=== PATIENT | female | born 1985 | race Caucasian/White ===

== ENCOUNTER → 2016-12-04 | Outpatient (CLI) | payer OTHER ==
--- NOTE | 2016-12-04 19:03 | DIAGNOSTIC IMAGING REPORT ---
C-SPINE ROUTINE 4 OR 5 VIEWS CLINICAL HISTORY: 30 years-old Female presenting with SORE NECK trauma neck spasms for 10 years. TECHNIQUE: Frontal, bilateral oblique, lateral, and open-mouth odontoid views of the cervical spine were obtained. COMPARISON: None. FINDINGS: The C6 vertebral body is the last fully visualized level, limiting evaluation. Allowing for this, vertebral body heights and alignment preserved. Intervertebral disc spaces maintained. No radiographic evidence of acute fracture or subluxation. No osseous neural foraminal narrowing. No significant degenerative change. The lateral masses of C1 articulate normally with C2. No prevertebral soft tissue swelling. IMPRESSION: No radiographic evidence of acute osseous injury of the cervical spine or significant abnormality. Electronically signed by: Karri Gayle M.D. 12/04/2016 7:01 PM Dictated Date/Time: 12/04/2016 6:59 PM
== END | disposition home or self-care (01) ==
LOC: C.RAD 18:26
PROVIDERS: ATTEND Nurse Practitioner
DX: Z13.220 Encounter for screening for lipoid disorders (principal); M62.838 Other muscle spasm; M54.2 Cervicalgia

== ENCOUNTER 2020-05-27 15:28 | Inpatient (IN) ==
--- OUTSIDE RECORDS SUMMARY | 2020-05-27 15:31 | External Medical Summary | Continuity of Care Document ---
:1985 Author Name Luca Wilson, Provider Address Unavailable Unavailable , Care Team Providers Name Role Phone GaryG Katie, Provider Unavailable [email or web address] Ramachandran M.D., Jono Kennedy Unavailable [email or web address] Shelli HAIR Unavailable Unavailable Unavailable Unavailable Unavailable Problems Vaginal discharge (623.5) (N89.8) Asthma (493.90) (J45.909) Allergies and Adverse Reactions Sulfa Drugs (Allergy) Medications metroNIDAZOLE 0.75 % Vaginal Gel; Insert 1 full applicator vaginally at bedtime for 5 days Katie Ramachandran Start: 25-Feb-2017 Quantity: 1 70 GM Tube Refills: 0 Penicillin V Potassium 500 MG Oral Tablet Refills: 0 Procedures History of wisdom tooth extraction Statu s: Completed Immunizations Immunizations not documented Family History Grandmother Family history of type 2 diabetes mellitus (V18.0) (Z83.3) S tatus: Active Father Family history of hyperlipidemia (V18.19) (Z83.438) Status: Active aunt Family history of malignant neoplasm of breast (V16.3) (Z80. 3) Status: Active Grandfather Family history of malignant neoplasm of prostate (V16. 42) (Z80.42) Status: Active Family history of colon cancer (V16.0) (Z80.0) Status: Activ e Mother Family history of uterine leiomyoma (V18.7) (Z84.89) Status: Active Grandmother Family history of Twins (V27.9) (Z38.5) Status: Active Social History - Smoking Status Never smoked tobacco Plan of Treatment Planned Observations Planned Goals not documented Results No Known Results Results not documented
--- OUTSIDE RECORDS SUMMARY | 2020-05-27 15:31 | External Medical Summary | Continuity of Care Document ---
:1985 Author Name Luca Wilson, Provider Address Unavailable Unavailable , Care Team Providers Name Role Phone GaryG Katie, Provider Unavailable [email or web address] karen Ramachandran M.D., Jono Kenndey Unavailable [email or web address] Shelli HAIR Unavailable Unavailable Unavailable Unavailable Unavailable Problems Asthma (493.90) (J45.909) Vaginal discharge (623.5) (N89.8) Allergies and Adverse Reactions Sulfa Drugs (Allergy) Medications Penicillin V Potassium 500 MG Oral Tablet Refills: 0 metroNIDAZOLE 0.75 % Vaginal Gel; Insert 1 full applicator vaginally at bedtime for 5 days Katie Ramachandran Start: 25-Feb-2017 Quantity: 1 70 GM Tube Refills: 0 Procedures History of wisdom tooth [...]
[2020-05-27] MEDS ORDERED: ONDANSETRON INJ 2 MG/ML 2 ML VIAL IV STA (15:45)
[2020-05-27] MEDS ORDERED: HYDROmorphone INJ 1 MG/ML SYRINGE IV PRN (15:45)
[2020-05-27] MEDS ORDERED: SODIUM CHLORIDE 0.9% 1000ML 1,000 ML IV ONE (15:45)
[2020-05-27 16:04] LABS: Basophils # (auto) 0.02 K/uL (0-0.2); Basophils % (auto) 0.2 %; Eosinophils # (auto) 0.26 K/uL (0-0.5); Hematocrit (blood only) 42.8 % (37-47); Hemoglobin 13.1 g/dL (12.0-16.0); Immature Granulocytes # (auto) 0.03 K/uL (0.00-0.02); Immature Granulocytes % (auto) 0.2 %; Lymphocytes # (auto) 2.91 K/uL (1.2-3.4); Mean Corpuscular Hemoglobin 24.7 pg (25-34); Mean Corpuscular Hgb Conc 30.6 g/dL (32-36); Mean Corpuscular Volume 80.6 fL (80-100); Mean Platelet Volume 10.1 fL (7.4-10.4); Monocytes # (auto) 0.71 K/uL (0.11-0.59); Monocytes % (auto) 5.4 %; Neutrophils # (auto) 9.27 K/uL (1.4-6.5); Neutrophils % (auto) 70.2 %; Platelet Count 383 K/uL (130-400); RDW Coefficient of Variation 17.6 % (11.5-14.5); RDW Standard Deviation 51.7 fL (36.4-46.3); Red Blood Count 5.31 M/uL (4.2-5.4)
[2020-05-27 16:23] LABS: iSTAT Creatinine 0.4 mg/dl (0.6-1.3); iSTAT Hemoglobin 13.6 g/dl (12.0-16.0); iSTAT Ionized Calcium 1.15 mmol/l (1.12-1.32); iSTAT Potassium 3.9 mmol/L (3.3-5.0)
[2020-05-27 16:25] LABS: Albumin Level 3.4 gm/dl (3.4-5.0); BUN Creatinine Ratio 25.2 (10-20); Calcium 8.4 mg/dl (8.5-10.1); Creatinine Clr Calc Pharmacy 153.8 ml/min; Est GFR (African American) 138.2; Est GFR (Non-African American) 119.3; Potassium 3.8 mmol/L (3.5-5.1)
[2020-05-27 16:27] LABS: Albumin Globulin Ratio 0.7 (0.9-2); Bilirubin,Total 0.4 mg/dl (0.2-1); Globulin 4.8 gm/dl (2.5-4.0); Total Protein 8.2 gm/dl (6.4-8.2)
[2020-05-27] MEDS ORDERED: IOVERSOL 100ml IV ONE (16:45)
--- NOTE | 2020-05-27 17:28 | CT Scan Report ---
CT OF THE ABDOMEN AND PELVIS WITH CONTRAST CLINICAL HISTORY: Abdominal pain. COMPARISON STUDY: None. TECHNIQUE: Following IV administration of 93 mL of Optiray-320, axial images of the abdomen and pelvi s were obtained from the lung bases to the proximal femurs. Images were reviewed in the axial, sagitt al, and coronal planes. IV contrast was administered without complication. Automated exposure contro l was utilized for the study. A dose lowering technique was utilized adhering to the principles of A EVA. CT DOSE: 1015.26 mGycm FINDINGS: Lung bases are unremarkable. No pneumatosis, free air or portal venous gas is present. Post operative findings within the stomach are noted suggestive of Meghann-en-Y gastric bypass. Liver, spleen , adrenal glands, kidneys and pancreas are unremarkable. There is mild gallbladder distention without adjacent infiltration. There is no biliary or pancreatic ductal dilatation. There is no hydronephros is. Nephrograms are symmetric. There is no evidence for acute appendicitis. Note is made of a lower a bdominal ventral hernia which contains multiple small bowel loops. A small amount of ascites within t he hernia sac is noted. A loop of small bowel within the hernia sac is mildly dilated, measuring 3.9 cm in caliber. A few additional small bowel loops are also mildly dilated and fluid-filled. Major vas culature is patent. There are no suspicious osseous lesions or acute fractures within visualized skel etal structures. A partial small bowel obstruction cannot be excluded. Subcutaneous infiltration of t he abdominal wall is noted. There is no fluid collection. IMPRESSION: 1. Lower abdominal ventral hernia which contains multiple small bowel loops and trace ascites. Mildly dilated loop of small bowel within the hernia sac. A few additional mildly dilated small bowel loops . A partial small bowel obstruction related to the ventral hernia cannot be excluded. 2. Mild gallbladder distention without adjacent infiltration. 3. No evidence for acute appendicitis. 4. Status post gastric bypass. ACT 112: Negative or not required by law. Electronically signed by: Dhruv Sommers M.D. 05/27/2020 5:27 PM
--- NOTE | 2020-05-27 17:57 | Emergency Department Note ---
History of Present Illness General Chief complaint: Abdominal Pain Stated complaint: severe pain with hernia Time Seen by Provider: 05/27/20 15:37 Source: patient, RN notes reviewed and old records reviewed Mode of arrival: ambulatory Limitations: no limitations History of Present Illness Provider complaint: umbilical hernia Onset (ago): day(s) 3 Location: abdomen Severity: severe Pain Consistency: + constant Maximum Pain Intensity: 9 Current Pain Intensity: 9 Quality: + aching Relieved By: + immobilization and + rest Exacerbated By: + movement Associated symptoms: + nausea/vomiting; no chest pain, no diaphoresis, no fever/chills, no headaches, no loss of appetite and no weakness Treatments prior to arrival: none This is a 34-year-old female who had a gastric bypass performed in [place] in November. At that time she also had a umbilical hernia repaired. The patient reports that the hernia popped out approximately 1 month ago. She began experiencing pain at the area approximately 1 week ago and vomited on . She went to [facility] emergency department and presents here today over concerns about the pain. She denies any fevers or chills Home Medications Medication Instructions Recorded Confirmed Type calcium citrate 0 mg PO DAILY 05/27/20 05/27/20 History cholecalciferol (vitamin D3) 0 mcg PO DAILY 05/27/20 05/27/20 History [Vitamin D3] multivitamin 1 tab PO QAM 05/27/20 05/27/20 History vitamin A 0 unit PO DAILY 05/27/20 05/27/20 History vitamin K2 0 mcg PO DAILY 05/27/20 05/27/20 History Allergies Allergy/AdvReac Type Severity Reaction Status Date / Time acetaminophen [From Percocet] AdvReac Intermediate Agitation Unverified 05/27/20 17:31 ibuprofen AdvReac Intermediate Not to Unverified 05/27/20 17:31 Take Due to Weight Loss Surgery oxycodone [From Percocet] AdvReac Intermediate Agitation Unverified 05/27/20 17:31 Sulfa (Sulfonamide AdvReac Intermediate Shortness Unverified 05/27/20 17:31 Antibiotics) of Breath Past Med/Surg History Surgical History (Updated 05/27/20 @ 18:04 by Hong Ramirez MD) H/O gastric bypass S/P hernia repair Social History Smoking Status: Never smoker Feels Safe at Home: Yes Review of Systems A total of 10 systems reviewed and were otherwise negative Physical Exam Vital Signs Vital Signs - 24 hr 05/27/20 15:29 05/27/20 16:00 05/27/20 16:04 Temperature 36.6 C Temperature Source Temporal Artery Scan Pulse Rate 58 L 52 L 55 L Respiratory Rate 20 22 24 Respiratory Effort / Characteristics Non-Labored Respiratory Depth Normal Blood Pressure 124/67 137/67 Blood Pressure Mean 86 84 Pulse Oximetry 97 Oxygen Delivery Method Room Air Sepsis Recent Fever Within 48 Hours No Sepsis New/Unexplained Change in Mental Status N/A Sepsis Action Taken by Nursing No Action Required 05/27/20 16:05 05/27/20 16:30 05/27/20 16:31 Temperature Temperature Source Pulse Rate 51 L 54 L Respiratory Rate 20 22 Respiratory Effort / Characteristics Respiratory Depth Blood Pressure 98/42 L Blood Pressure Mean 51 Pulse Oximetry 98 Oxygen Delivery Method Room Air Sepsis Recent Fever Within 48 Hours Sepsis New/Unexplained Change in Mental Status Sepsis Action Taken by Nursing 05/27/20 16:32 05/27/20 17:00 05/27/20 17:01 Temperature Temperature Source Pulse Rate 78 51 L 47 L Respiratory Rate 25 H 22 20 Respiratory Effort / Characteristics Respiratory Depth Blood Pressure 126/66 Blood Pressure Mean 93 Pulse Oximetry Oxygen Delivery Method Sepsis Recent Fever Within 48 Hours Sepsis New/Unexplained Change in Mental Status Sepsis Action Taken by Nursing 05/27/20 17:30 05/27/20 17:31 05/27/20 18:00 Temperature Temperature Source Pulse Rate 48 L 48 L 62 Respiratory Rate 13 16 20 Respiratory Effort / Characteristics Respiratory Depth Blood Pressure 116/65 134/76 Blood Pressure Mean 83 90 Pulse Oximetry Oxygen Delivery Method Sepsis Recent Fever Within 48 Hours Sepsis New/Unexplained Change in Mental Status Sepsis Action Taken by Nursing 05/27/20 18:41 05/27/20 18:42 05/27/20 18:43 Temperature Temperature Source Pulse Rate 54 L 53 L 55 L Respiratory Rate 16 20 22 Respiratory Effort / Characteristics Respiratory Depth Blood Pressure 126/52 L Blood Pressure Mean 72 Pulse Oximetry Oxygen Delivery Method Sepsis Recent Fever Within 48 Hours Sepsis New/Unexplained Change in Mental Status Sepsis Action Taken by Nursing VITAL SIGNS - Vital signs and nursing notes were reviewed. GENERAL - 34-year-old female appearing stated age who is in no acute distress. Communicates well with provider and answers questions appropriately. SKIN - Without rashes. HEAD - NC/AT. EYES - PERRL with EOMI bilaterally. Sclera anicteric. Palpebral conjunctiva pink and moist with no injection noted. EARS - No deformities of external structures noted on gross examination bilaterally. No pain elicited with palpation of the tragus bilaterally. External auditory canals without discharge or otorrhea. Tympanic membranes pearly rios without retraction or bulging. No fluid or purulent material visualized behind the TM. Handle of malleus, umbo, cone of light, pars tensa/flaccid all easily visualized. NOSE - Midline and without cyanosis. No epistaxis or purulent drainage noted. Septum midline without deviation or septal hematoma noted. MOUTH/OROPHARYNX - Without perioral cyanosis. Buccal mucosa pink and moist and without leukoplakia. Tongue midline with equal elevation of palate bilaterally. No tonsillar hypertrophy, erythema, or exudates noted. dentition noted. NECK - Neck with FROM. Supple to palpation. lymphadenopathy noted. No nuchal rigidity. LUNGS - Chest wall symmetric without accessory muscle use, intercostals retractions, or central cyanosis. Normal vesicular breath sounds CTA B/L. No wheezes, rales, or rhonchi appreciated. CARDIAC - RRR with S1/S2. No murmur, rubs, or gallops appreciated. ABDOMEN - Umbilical hernia purple in appearance, hernia appears to reduce but immediately comes back out EXTREMITIES - No clubbing or peripheral cyanosis. No pretibial edema present. +3/5 radial, posterior tibial, and dorsalis pedis pulses palpated throughout. +5/5 strength noted in UE/LE bilaterally. NEUROLOGIC - Cranial nerves II through XII grossly intact. Sensory intact to light touch throughout. Patellar reflexes +2/4. PSYCH - A&Ox3 and cooperates fully with examiner. Pt is very pleasant and interacts well with examiner. Course Administered Medications Hydromorphone HCl (Hydromorphone Inj 1 Mg/Ml Syringe) 1 mg IV Q15M PRN PRN Reason: Pain Stop: 06/10/20 15:44 Last Admin: 05/27/20 15:55 Dose: 1 mg Documented by: [id number] Discontinued Medications Sodium Chloride (Nss 1000ml) 1,000 mls @ 999 mls/hr IV .Q1H1M ONE Stop: 05/27/20 16:45 Last Infusion: 05/27/20 17:32 Dose: 0 mls/hr Documented by: [id number] Admin: 05/27/20 15:54 Dose: 999 mls/hr Documented by: [id number] Ioversol (Ioversol 100ml) 93 ml IV ONCE ONE Stop: 05/27/20 16:46 Last Admin: 05/27/20 16:45 Dose: 93 ml Documented by: [id number] Ondansetron HCl (Ondansetron Inj 2 Mg/Ml 2 Ml Vial) 4 mg IV NOW STA Stop: 05/27/20 15:46 Last Admin: 05/27/20 15:55 Dose: 4 mg Documented by: [id number] Medical Decision Making Differential Diagnosis Appendicitis, ovarian cyst, ovarian torsion, ectopic , TOA, PID, infections, diverticulitis, UTI, obstruction, mesenteric ischemia, aortic pathology, inflammatory bowel disease, renal colic, PUD, pancreatitis, biliary pathology, hernia, volvulus, constipation, as well as other pathologies. Medical Records Attestation: I reviewed the patient's medical records. Home Medications Current Medication List: was personally reviewed by me Laboratory Data Attestation: I reviewed the patient's lab results. Result diagrams: 05/27/20 15:45 05/27/20 15:45 Lab Results 05/27/20 05/27/20 05/27/20 Range/Units 15:45 15:45 16:03 WBC 13.20 H (4.8-10.8) K/uL RBC 5.31 (4.2-5.4) M/uL Hgb 13.1 (12.0-16.0) g/dL POC Hgb 13.6 (12.0-16.0) g/dl Hct 42.8 (37-47) % POC Hct 40 (37-47) % MCV 80.6 (80-100) fL MCH 24.7 L (25-34) pg MCHC 30.6 L (32-36) g/dL RDW Std Deviation 51.7 H (36.4-46.3) fL RDW Coeff of Maura 17.6 H (11.5-14.5) % Plt Count 383 (130-400) K/uL MPV 10.1 (7.4-10.4) fL Immature Gran % (Auto) 0.2 % Neut % (Auto) 70.2 % Lymph % (Auto) 22.0 % [place] % (Auto) 5.4 % Eos % (Auto) 2.0 % Baso % (Auto) 0.2 % Neut # (Auto) 9.27 H (1.4-6.5) K/uL Lymph # (Auto) 2.91 (1.2-3.4) K/uL [place] # (Auto) 0.71 H (0.11-0.59) K/uL Eos # (Auto) 0.26 (0-0.5) K/uL Baso # (Auto) 0.02 (0-0.2) K/uL Immature Gran # (Auto) 0.03 H (0.00-0.02) K/uL POC Sodium 143 (135-144) mmol/L Sodium 141 (136-145) mmol/L POC Potassium 3.9 (3.3-5.0) mmol/L Potassium 3.8 (3.5-5.1) mmol/L POC Chloride 104 (101-112) mmol/L Chloride 110 H (98-107) mmol/L Carbon Dioxide 26 (21-32) mmol/L POC Total CO2 24 (24-31) mmol/L Anion Gap 5.0 (3-11) POC Anion Gap 19.0 (16-25) mmol/L POC BUN 16 (7-18) mg/dl BUN 14 (7-18) mg/dl Creatinine 0.57 L (0.6-1.2) mg/dl POC Creatinine 0.4 L (0.6-1.3) mg/dl Est Cr Clr Drug Dosing 153.8 ml/min Est GFR ( Amer) 138.2 Est GFR (Non-Af Amer) 119.3 BUN/Creatinine Ratio 25.2 H (10-20) Glucose 94 (70-99) mg/dl POC Glucose (other) 94 (70-99) mg/dl Calcium 8.4 L (8.5-10.1) mg/dl POC Ioniz Calcium Jenna 1.15 (1.12-1.32) mmol/l Total Bilirubin 0.4 (0.2-1) mg/dl AST 9 L (15-37) U/L ALT 21 (12-78) U/L Alkaline Phosphatase 129 H (45-117) U/L Total Protein 8.2 (6.4-8.2) gm/dl Albumin 3.4 (3.4-5.0) gm/dl Globulin 4.8 H (2.5-4.0) gm/dl Albumin/Globulin Ratio 0.7 L (0.9-2) Lipase 645 H (73-393) U/L Imaging Data Radiologist's Impression: [facility], [phone] CT Scan Report Patient: REDD SIDDIQI Date: 05/27/20MR#: [id number]: [id number] ID:[id number]: Date: 1985[facility] Zip: [place] [id number]: [id number]: EDSex: FRoom/Bed:Att Phy:Diagnosis: severe pain with herniaPri Phy: Patricia Nicolas DOService Date: 05/27/20Fam Phy :Interpreting Phy: Dhruv Sommers MDAdmit Phy: Ordering Phy: Hong Ramirez MD cc: ~ CT OF THE ABDOMEN AND PELVIS WITH CONTRAST CLINICAL HISTORY: Abdominal pain. COMPARISON STUDY: None. TECHNIQUE: Following IV administration of 93 mL of Optiray-320, axial images of the abdomen and pelvis were obtained from the lung bases to the proximal femurs. Images were reviewed in the axial, sagittal, and coronal planes. IV contrast was administered without complication. Automated exposure control was utilized for the study. A dose lowering technique was utilized adhering to the principles of ALARA. CT DOSE: 1015.26 mGycm FINDINGS: Lung bases are unremarkable. No pneumatosis, free air or portal venous gas is present. Postoperative findings within the stomach are noted suggestive of Meghann-en-Y gastric bypass. Liver, spleen, adrenal glands, kidneys and pancreas are unremarkable. There is mild gallbladder distention without adjacent infiltration. There is no biliary or pancreatic ductal dilatation. There is no hydronephrosis. Nephrograms are symmetric. There is no evidence for acute appendicitis. Note is made of a lower abdominal ventral hernia which contains multiple small bowel loops. A small amount of ascites within the hernia sac is noted. A loop of small bowel within the hernia sac is mildly dilated, measuring 3.9 cm in caliber. A few additional small bowel loops are also mildly dilated and fluid-filled. Major vasculature is patent. There are no suspicious osseous lesions or acute fractures within visualized skeletal structures. A partial small bowel obstruction cannot be excluded. Subcutaneous infiltration of the abdominal wall is noted. There is no fluid collection. IMPRESSION: 1. Lower abdominal ventral hernia which contains multiple small bowel loops and trace ascites. Mildly dilated loop of small bowel within the hernia sac. A few additional mildly dilated small bowel loops. A partial small bowel obstruction related to the ventral hernia cannot be excluded. 2. Mild gallbladder distention without adjacent infiltration. 3. No evidence for acute appendicitis. 4. Status post gastric bypass. ACT 112: Negative or not required by law. Electronically signed by: Dhruv Sommers M.D. 05/27/2020 5:27 PM Dictated: 05/27/201717Transcribed: 05/27/201717 [facility] Narrative Patient was seen and evaluated as above in room C2. Review was performed of nursing notes and vital signs. I did review pertinent previous visits and patient history. After obtaining a thorough history and physical examination the above work up was performed. This is a 34-year-old female who presents emergency department concerns of an incarcerated hernia. The patient was sent for CAT scan as above. Patient does have a slight elevation in her white blood cell count. I did discuss the case with the surgeon on-call who was kind enough to come and see the patient at the bedside. He is going to admit the patient to the hospital. In the meantime the patient was given Dilaudid for her pain. Repeat examination revealed improvement the patient's symptoms. An order was placed for continuous cardiac monitoring. The monitor shows a rate of 48 with Normal Sinus rhythm. The patient was evaluated during a period of high volume and high acuity while the hospital was at overcapacity during the global COVID-19 pandemic, and that diagnosis was suspected/considered upon their initial presentation. Their eval uation, treatment and testing was consistent with current guidelines for patients who present with complaints or symptoms that may be related to COVID- 19. Impression & Plan Abdominal pain, Hernia Discharge Plan Visit Data Chief Complaint: Abdominal Pain Stated Complaint: severe pain with hernia ED Provider: Hong Ramirez Discharge Problem: Abdominal pain, Hernia Discharge Instructions Interventions: ED Discharge Assessment Last Done: 05/27/20 20:00 Discharge Problem: Abdominal pain Qualifiers: Abdominal location: unspecified location Qualified Code(s): R10.9 - Unspecified abdominal pain
--- NOTE | 2020-05-27 18:10 | History & Physical Report ---
Date of Service May 27, 2020 Assessment & Plan (1) Abdominal pain: We discussed her findings and options. This is not an emergency life- threatening situation however she would be unable to go home with a partial small bowel obstruction and nausea vomiting. We will admit her for symptom control and rehydration. We will plan an open ventral hernia repair with mesh in the morning. We discussed risks which would include bleeding, infection, infection of mesh, seroma, hematoma, injury to other organs such as small bowel, DVT, PE, [place], CVA etc. Following our discussion I answered all of her questions. She is agreeable to the plan. (2) Hernia: (3) Partial small bowel obstruction: History of Present Illness Primary Care Provider: Patricia Nicolas DO 34 y/o female with a history of gastric bypass performed in [place] this past summer. She has lost approximately 85 pounds. They had repaired a periumbilical ventral hernia at the same time although they did not use mesh. Recently she noticed recurrence of the hernia. This past week she has had escalating discomfort and had some nausea vomiting on although none today. Currently in mild discomfort. CT scan shows incarcerated ventral hernia with mildly dilated loops of bowel. Allergies Allergy/AdvReac Type Severity Reaction Status Date / Time acetaminophen [From Percocet] AdvReac Intermediate Agitation Unverified 05/27/20 17:31 ibuprofen AdvReac Intermediate Not to Unverified 05/27/20 17:31 Take Due to Weight Loss Surgery oxycodone [From Percocet] AdvReac Intermediate Agitation Unverified 05/27/20 17:31 Sulfa (Sulfonamide AdvReac Intermediate Shortness Unverified 05/27/20 17:31 Antibiotics) of Breath Home Medications Medication Instructions Recorded Confirmed Type calcium citrate 0 mg PO DAILY 05/27/20 05/27/20 History cholecalciferol (vitamin D3) 0 mcg PO DAILY 05/27/20 05/27/20 History [Vitamin D3] multivitamin 1 tab PO QAM 05/27/20 05/27/20 History vitamin A 0 unit PO DAILY 05/27/20 05/27/20 History vitamin K2 0 mcg PO DAILY 05/27/20 05/27/20 History Past Med/Surg History Surgical History (Updated 05/27/20 @ 18:04 by Hong Ramirez MD) H/O gastric bypass S/P hernia repair Social History Smoking Status: Never smoker Feels Safe at Home: Yes Review of Systems Review of Systems: All systems reviewed & are unremarkable except as noted in HPI & below Physical Exam Constitutional: WD/WN, vitals as above no acute distress and not ill appearing Eyes: PERRL, conjunctivae normal, anicteric sclerae EOM intact bilaterally ENMT: external ear and nose normal, oropharynx normal Ears: no hearing impairment Neck: trachea midline, no thyromegaly Respiratory: normal respiratory effort; no respiratory distress and does not use accessory muscles Cardiovascular: Rate/Rhythm: regular rate and regular rhythm Gastrointestinal (Abdomen): Abdomen is soft. There is an obvious ventral hernia at a prior midline incision. It is mildly tender. Reducible. No guarding rebound or rigidity Skin: no rashes, warm and dry Psychiatric: Orientation: alert, oriented x 3 and cooperative Results & Data Results & Data ([facility]) Vital Signs (Past 12 Hours) Vital Signs Temp Pulse Resp BP Pulse Ox 05/27/20 18:00 62 20 134/76 05/27/20 17:31 48 L 16 05/27/20 17:30 48 L 13 116/65 05/27/20 17:01 47 L 20 05/27/20 17:00 51 L 22 126/66 05/27/20 16:32 78 25 H 05/27/20 16:31 54 L 22 98/42 L 05/27/20 16:30 51 L 20 05/27/20 16:05 98 05/27/20 16:04 55 L 24 05/27/20 16:00 52 L 22 137/67 05/27/20 15:29 36.6 C 58 L 20 124/67 97 PG Care Time/CCT Total # of Minutes Spent Total Time Spent with Patient: Total time spent is greater than 50% in coordination of care (as documented) at patient's floor/unit and/or counseling patient: Coding Level of Care Code 95597 OBS Care - Level 3 Diagnoses Abdominal pain R10.9 Abdominal location: unspecified location Hernia K46.9 Partial small bowel obstruction K56.600 (1) Abdominal pain Abdominal location: unspecified location Qualified Code(s): R10.9 - Unspecified abdominal pain
[2020-05-27 18:56] LABS: Appearance Urine Clear (Clear); Bilirubin Urine Negative (Negative); Blood Urine Negative (Negative); Color Urine Yellow; Glucose Urine UA Negative (Negative); Ketones Urine Negative (Negative); Leukocyte Esterase Urine Negative (Negative); Nitrite Urine Negative (Negative); Protein Urine Negative (Negative); Specific Gravity Urine > 1.045 (1.000-1.030); Urobilinogen Urine Negative (Negative)
[2020-05-27] MEDS ORDERED: ONDANSETRON INJ 2 MG/ML 2 ML VIAL IV PRN (21:07)
[2020-05-27] MEDS ORDERED: HYDROmorphone INJ 0.5 MG/0.5 ML SYR IV PRN (21:07)
[2020-05-27] MEDS: SODIUM CHLORIDE 0.9% 1000ML 1,000 ML IV SCH (22:14)
[2020-05-28] MEDS: SODIUM CHLORIDE 0.9% 1000ML 1,000 ML IV SCH ×3 (06:51→18:33)
--- NOTE | 2020-05-28 07:43 | History & Physical Bridge Note ---
Date of Service May 28, 2020 History & Physical Bridge Note I have examined the patient, reviewed the History & Physical and in the interval since the performance of the History & Physical I have noted the following changes of clinical significance: no changes noted
[2020-05-28] MEDS ORDERED: LIDOCAINE HCL 2% 2 ML VIAL/AMP(20MG/ML) INFIL ONE (08:00)
[2020-05-28] MEDS ORDERED: MIDAZOLAM HCL 1 MG/ML 2ML VIAL ONE (08:00)
[2020-05-28] MEDS ORDERED: PROPOFOL IV EMULSION 10 MG/ML 20 ML VIAL IV ONE (08:00)
[2020-05-28] MEDS ORDERED: NEOSTIGMINE METHYLSULFATE 5 MG/5 ML SYR ONE (08:00)
[2020-05-28] MEDS ORDERED: DEXAMETHASONE SOD INJ 4 MG/ML VIAL ONE (08:00)
[2020-05-28] MEDS ORDERED: ONDANSETRON INJ 2 MG/ML 2 ML VIAL ONE ×2 (08:00→11:56)
[2020-05-28] MEDS ORDERED: fentaNYL citrate 100 MCG/2 ML VIAL ONE ×2 (08:00→10:46)
[2020-05-28] MEDS ORDERED: GLYCOPYRROLATE 0.2 MG/ML VIAL ONE (08:00)
--- NOTE | 2020-05-28 08:05 | Anesthesiology Consultation ---
Date of Service May 28, 2020 Assessment & Plan (1) Encounter for pre-operative examination: Chart Review Chart Review: Acceptable Risk for Surgery (COVID negative last evening) History Surgery Operation Date: 05/28/20 10:00 Proposed Procedures p Ventral Hernia Repair - Nakul Avery, Height/Weight Height: 5 ft 2 in Weight: 103.3 kg Allergies Allergy/AdvReac Type Severity Reaction Status Date / Time acetaminophen [From Percocet] AdvReac Intermediate Agitation Unverified 05/27/20 17:31 ibuprofen AdvReac Intermediate Not to Unverified 05/27/20 17:31 Take Due to Weight Loss Surgery oxycodone [From Percocet] AdvReac Intermediate Agitation Unverified 05/27/20 17:31 Sulfa (Sulfonamide AdvReac Intermediate Shortness Unverified 05/27/20 17:31 Antibiotics) of Breath Medications Home Medications Medication Instructions Recorded Confirmed Last Taken calcium citrate 0 mg PO DAILY 05/27/20 05/27/20 05/27/20 cholecalciferol (vitamin D3) 0 mcg PO DAILY 05/27/20 05/27/20 05/27/20 [Vitamin D3] multivitamin 1 tab PO QAM 05/27/20 05/27/20 05/27/20 vitamin A 0 unit PO DAILY 05/27/20 05/27/20 05/27/20 vitamin K2 0 mcg PO DAILY 05/27/20 05/27/20 05/27/20 Active Medications Generic Name Dose Route Start Last Admin Trade Name Freq PRN Reason Stop Dose Admin Hydromorphone HCl 0.5 mg 05/27/20 21:07 05/27/20 22:21 Hydromorphone Inj 0.5 Mg/0.5 Ml Syr IV 06/10/20 21:06 0.5 mg Q3H PRN Administration Pain (6,7,8,9,10) Sodium Chloride 1,000 mls @ 125 mls/hr 05/27/20 21:07 05/28/20 06:51 Nss 1000ml IV 06/26/20 21:06 125 mls/hr .Q8H LIZZIE Administration Ondansetron HCl 4 mg 05/27/20 21:07 05/27/20 22:21 Ondansetron Inj 2 Mg/Ml 2 Ml Vial IV 06/26/20 21:06 4 mg Q4H PRN Administration Nausea And Vomiting NPO Date Last Intake of Fluids: 05/28/20 Time Last Intake of Fluids: 00:00 Date Last Intake of Solids: 05/28/20 Time Last Intake of Solids: 00:00 Past Medical History Medical History (Updated 05/28/20 @ 08:05 by Kt Fields MD) Obesity Partial small bowel obstruction Past Surgical History Surgical History H/O gastric bypass S/P hernia repair Social History Smoking Status: Never smoker Hx Alcohol Use: Yes alcohol intake frequency: holidays/special occasions only Hx Substance Use: No Physical Exam Vital Signs Last Vital Signs Temp 36.5 C 05/28/20 07:13 Pulse 52 L 05/28/20 07:13 Resp 20 05/28/20 07:13 BP 106/64 05/28/20 07:13 Pulse Ox 95 05/28/20 07:13 Testing Laboratory Results 05/27/20 15:45 05/27/20 15:45 Urine Color Yellow 05/27/20 18:45 Urine Appearance Clear (Clear) 05/27/20 18:45 Urine pH 5.0 (4.5-7.5) 05/27/20 18:45 Ur Specific [place] > 1.045 (1.000-1.030) H 05/27/20 18:45 Urine Protein Negative (Negative) 05/27/20 18:45 Urine Glucose (UA) Negative (Negative) 05/27/20 18:45 Urine Ketones Negative (Negative) 05/27/20 18:45 Urine Nitrite Negative (Negative) 05/27/20 18:45 Ur Leukocyte Esterase Negative (Negative) 05/27/20 18:45
[2020-05-28] MEDS ORDERED: ceFAZolin 2,000 MG/15 ML IV PUSH IV ONE (08:43)
[2020-05-28] MEDS ORDERED: PROMETHAZINE HCL 12.5 MG in SODIUM CHLORIDE 0.9% 50 ML IV PRN (09:15)
[2020-05-28] MEDS ORDERED: ATROPINE SULFATE 0.1 MG/ML 10ML SYR IV PRN (09:15)
[2020-05-28] MEDS ORDERED: ONDANSETRON INJ 2 MG/ML 2 ML VIAL IV PRN (09:15)
[2020-05-28] MEDS ORDERED: BUPIVACAINE/EPINEPHRINE 0.5% MPF 1:200,000 30 ML VIAL ONE (09:34)
[2020-05-28] MEDS ORDERED: SUCCINYLCHOLINE CHLORIDE 20 MG/ML 10 ML VIAL IV ONE (10:06)
[2020-05-28] MEDS ORDERED: LARYING-O-JET KIT (LTA) ONE (10:06)
[2020-05-28] MEDS ORDERED: ROCURONIUM BROMIDE 10 MG/ML 5 ML VIAL IV ONE (10:06)
[2020-05-28] MEDS ORDERED: HYDROmorphone INJ 2 MG/ML SYR/VIAL ONE (11:46)
--- NOTE | 2020-05-28 12:08 | Operative Report ---
PG Post Operative Report Pre & Post Diagnosis Operation Date: 05/28/20 10:00 Pre-Op Diagnosis: INCARCERATED VENTRAL HERNIA Post-Op Diagnosis: INCARCERATED VENTRAL HERNIA;adhesions;ischemic umbilicus I identified the patient and participated in the time-out.: Yes Procedure Operation Date: 05/28/20 10:00 Actual Procedures p Open Repair of recurrent Ventral Hernia with Mesh, Extensive Enterolyis, and Umbilectomy(Not Applicable) - Nakul Avery DO Surgeon Nakul Avery DO Electronic Tech bryn madden Estimated Blood Loss 50 Findings Consistent with Post-Op Diagnosis Specimens none Description of Procedure After informed consent was obtained the patient was taken to the operating room and placed in supine position. After successful intubation the abdomen was sterilely prepped and draped in usual fashion. I began by making a vertical incision through her old scar line from above the umbilicus down around and in ferior to the umbilicus. Cautery was used to carry this down through the soft tissue. We readily encountered a very redundant and thickened chronic hernia sac. When I opened this there was a rather large hernia defect with probably a foot of small bowel incarcerated within it. The bowel did not appear ischemic. For the first 45 minutes of the case we spent lysing adhesions using finger fractionation as well as sharp scissor lysis. There was a fair amount of small bowel attached to the undersurface of the fascia as well. Once we had the adhesions taken down we then identified the fascial defect. We excised the redundant thick hernia sac and discarded it. After we did this we were able to grasp the fascial edges in 360 degrees with Allis clamps. Because of her recent weight loss there was enough laxity to easily close the defect primarily. I primarily closed the defect using #1 Ethibond in simple interrupted fashion. Once we had it primarily closed we skeletonized the fascial edges for several centimeters in 360 degrees using cautery. A 20 cm x 20 cm piece of ovitex mesh was cut to appropriate size and placed as an onlay. It was secured to underlying fascia using 0 PDS. We did this in simple interrupted fashion. The mesh laid nice and flat and tension-free and overlapped for at least 3-4 cm in all directions. We thoroughly irrigated the wound prior to placing the mesh as well as after. There was adequate hemostasis. A 10 flat Graham-De Jesus drain was brought in through a separate stab incision and placed into the wound cavity. It was secured to the skin using 2-0 nylon. After repairing it we realized the umbilicus was ischemic. It was actually ischemic even before the incision. I did not believe it was viable. I therefore excised the umbilicus. We then closed the defect in several layers using 0 Vicryl for deep layers 2-0 Vicryl for mid layers and skin melba for the skin. A piece of silver Acticoat dressing as well as gauze and tape and abdominal binder were placed. The patient was awakened extubated and transferred recovery in stable condition. My physician library technical assistant was present for the entire case. He helped prep the patient. He helped with exposure throughout my dissection as well as with wound closure and dressing placement. I attest to the content of the Intraoperative Record and any orders documented t herein. Any exceptions are noted below.
[2020-05-28] MEDS: HYDROmorphone INJ 1 MG/ML SYRINGE IV PRN ×4 (12:17→12:32)
[2020-05-28] MEDS ORDERED: NALOXONE HCL 0.4 MG/1 ML VIAL/CARP IV PRN (13:02)
[2020-05-28] MEDS ORDERED: HYDROmorphone PCA 30 MG/30 ML IV PRN (13:02)
[2020-05-28] MEDS: KETOROLAC 30 MG/ML VIAL IV PRN (14:33)
--- NOTE | 2020-05-28 15:34 | Anesthesiology Progress Note ---
Date of Service May 28, 2020 Anesthesia Post Procedure Vital Signs Vital Signs: Temp Pulse Pulse Pulse Resp BP BP 05/28/20 15:00 36.6 C 71 16 103/69 05/28/20 14:00 36.6 C 64 18 144/72 H 05/28/20 13:36 36.7 C 64 16 135/83 05/28/20 13:02 37 C 58 L 15 137/79 05/28/20 12:50 36.8 C 52 L 25 H 135/55 L 05/28/20 12:40 51 L 24 130/58 L 05/28/20 12:30 50 L 25 H 140/57 L 05/28/20 12:20 52 L 24 128/69 05/28/20 12:10 55 L 26 H 159/76 H 05/28/20 12:00 36.5 C 65 26 H 164/94 H 05/28/20 07:13 36.5 C 52 L 20 106/64 05/27/20 22:59 36.6 C 54 L 22 135/76 05/27/20 21:06 36.6 C 56 L 22 106/54 L 05/27/20 19:31 50 L 18 113/50 L 05/27/20 19:30 58 L 22 05/27/20 19:01 60 20 113/43 L 05/27/20 19:00 63 24 05/27/20 18:43 55 L 22 05/27/20 18:42 53 L 20 126/52 L 05/27/20 18:41 54 L 16 05/27/20 18:00 62 20 134/76 05/27/20 17:31 48 L 16 05/27/20 17:30 48 L 13 116/65 05/27/20 17:01 47 L 20 05/27/20 17:00 51 L 22 126/66 05/27/20 16:32 78 25 H 05/27/20 16:31 54 L 22 98/42 L 05/27/20 16:30 51 L 20 05/27/20 16:05 05/27/20 16:04 55 L 24 05/27/20 16:00 52 L 22 137/67 Pulse Ox 05/28/20 15:00 91 05/28/20 14:00 93 05/28/20 13:36 95 05/28/20 13:02 92 05/28/20 12:50 94 05/28/20 12:40 94 05/28/20 12:30 95 05/28/20 12:20 95 05/28/20 12:10 98 05/28/20 12:00 100 05/28/20 07:13 95 05/27/20 22:59 93 05/27/20 21:06 94 05/27/20 19:31 05/27/20 19:30 05/27/20 19:01 05/27/20 19:00 05/27/20 18:43 05/27/20 18:42 05/27/20 18:41 05/27/20 18:00 05/27/20 17:31 05/27/20 17:30 05/27/20 17:01 05/27/20 17:00 05/27/20 16:32 05/27/20 16:31 05/27/20 16:30 05/27/20 16:05 98 05/27/20 16:04 05/27/20 16:00 Pain Intensity Abdomen: Pain Intensity: 5 Transfer of Care Handoff Completed per policy Notes Mental Status: alert / awake / arousable Patient Amnestic to Procedure: Yes Nausea / Vomiting: adequately controlled Pain: adequately controlled Airway Patency, RR, SpO2: stable & adequate BP & HR: stable & adequate Hydration State: stable & adequate Anesthetic Complications: no major complications apparent
[2020-05-28] MEDS: ceFAZolin 2000MG 2,000 MG/15 ML SYR IV SCH (17:10)
[2020-05-29] MEDS: SODIUM CHLORIDE 0.9% 1000ML 1,000 ML IV SCH ×3 (02:34→10:29)
[2020-05-29] MEDS: ceFAZolin 2000MG 2,000 MG/15 ML SYR IV SCH ×3 (07:42→17:21)
--- NOTE | 2020-05-29 08:38 | Surgery Progress Note ---
Date of Service May 29, 2020 Assessment & Plan (1) Recurrent ventral hernia with incarceration: Postop day 1 Not ready for discharge yet. Adequate analgesia at this point. We will advance diet. We will need to go home with KEVIN drain and abdominal binder Admission and Anticipated Discharge Date Admission Date: May 27, 2020 Subjective Patient is postoperative day #1 from an extensive recurrent hernia repair yesterday. She is having expected discomfort but overall is doing reasonably well all things considered. No nausea or vomiting. Physical Exam Physical Exam: Alert. No acute distress Dressings are clean and dry. KEVIN is serosanguineous output. Results & Data ([facility]) Vital Signs (Past 12 Hours) Vital Signs Temp Pulse Resp BP Pulse Ox 05/29/20 07:56 36.5 C 64 20 125/64 95 05/29/20 03:08 24 94 05/29/20 02:30 36.6 C 54 L 20 113/56 L 94 05/29/20 00:50 65 92 05/28/20 23:07 18 05/28/20 22:56 36.6 C 46 L 17 118/75 95 05/28/20 22:20 46 L 16 119/72 93 05/28/20 21:15 36.6 C 60 16 127/62 93 PG Care Time/CCT Total # of Minutes Spent Total Time Spent with Patient: Total time spent is greater than 50% in coordination of care (as documented) at patient's floor/unit and/or counseling patient: Coding Level of Care Code None Diagnoses Recurrent ventral hernia with incarceration K43.0
[2020-05-29] MEDS: KETOROLAC 30 MG/ML VIAL IV PRN (15:56)
[2020-05-30] MEDS: SODIUM CHLORIDE 0.9% 1000ML 1,000 ML IV SCH ×2 (01:50→06:35)
[2020-05-30] MEDS: ceFAZolin 2000MG 2,000 MG/15 ML SYR IV SCH ×2 (01:58→08:42)
--- NOTE | 2020-05-30 07:39 | Surgery Progress Note ---
Date of Service May 30, 2020 Assessment & Plan (1) Recurrent ventral hernia with incarceration: Postop day 2 stop WASTE PICKER ambulate continue KEVIN as above. no acute post op issues. still having considerable discomfort ( expected) not ready for d/c yet change to oral pain meds hopeful d/c tomorrow. Admission and Anticipated Discharge Date Admission Date: May 29, 2020 Subjective ambulating, tolerating diet, using WASTE PICKER less Physical Exam Gastrointestinal (Abdomen): Inspection/Auscultation: + abdominal surgical drain present (20 cc); abdomen not distended Percussion/Palpation: abdomen soft Results & Data ([facility]) Vital Signs (Past 12 Hours) Vital Signs Temp Pulse Resp BP BP Pulse Ox 05/30/20 03:58 36.8 C 84 22 143/80 H 96 05/29/20 23:59 36.6 C 80 18 143/82 H 95 PG Care Time/CCT Total # of Minutes Spent Total Time Spent with Patient: Total time spent is greater than 50% in coordination of care (as documented) at patient's floor/unit and/or counseling patient: Coding Level of Care Code None Diagnoses Recurrent ventral hernia with incarceration K43.0
[2020-05-30] MEDS ORDERED: HYDROmorphone INJ 0.5 MG/0.5 ML SYR IV PRN (07:41)
[2020-05-30] MEDS ORDERED: HYDROCODONE/ACETAMOPHEN 5/325MG TAB PO PRN (07:41)
[2020-05-30] MEDS: HYDROCODONE/ACETAMOPHEN 5/325MG TAB PO PRN ×2 (08:42→19:50)
[2020-05-30] MEDS: KETOROLAC 30 MG/ML VIAL IV PRN (20:41)
[2020-05-31] MEDS: HYDROCODONE/ACETAMOPHEN 5/325MG TAB PO PRN (07:54)
--- NOTE | 2020-05-31 08:17 | Surgery Progress Note ---
Date of Service May 31, 2020 Assessment & Plan (1) Recurrent ventral hernia with incarceration: Postop day 3 ventral hernia repair seen with Dr. Bennie pope for discharge as above. doing well. toshia for d/c. instructions discussed. Admission and Anticipated Discharge Date Admission Date: May 29, 2020 Subjective tolerating diet and po analgesics Physical Exam Gastrointestinal (Abdomen): Inspection/Auscultation: + abdominal surgical incision (dry, no erythema) and + abdominal surgical drain present (10-30 cc per shift); abdomen not distended Percussion/Palpation: abdomen soft Results & Data ([facility]) Vital Signs (Past 12 Hours) Vital Signs Temp Pulse Resp BP BP Pulse Ox 05/31/20 07:52 36.7 C 55 L 18 149/75 H 96 05/30/20 23:17 36.7 C 59 L 18 153/78 H 96 PG Care Time/CCT Total # of Minutes Spent Total Time Spent with Patient: Total time spent is greater than 50% in coordination of care (as documented) at patient's floor/unit and/or counseling patient: Coding Level of Care Code None Diagnoses Recurrent ventral hernia with incarceration K43.0
--- NOTE | 2020-06-01 10:12 | Discharge Summary ---
Date of Service June 01, 2020 Admission HPI Per Admitting Provider 34 y/o female with a history of gastric bypass performed in [place] this past summer. She has lost approximately 85 pounds. They had repaired a periumbilical ventral hernia at the same time although they did not use mesh. Recently she noticed recurrence of the hernia. This past week she has had escalating discomfort and had some nausea vomiting on although none today. Currently in mild discomfort. CT scan shows incarcerated ventral hernia with mildly dilated loops of bowel. Principal Diagnosis Incarcerated ventral hernia Discharge Exam Gastrointestinal (Abdomen) Inspection/Auscultation: + abdominal surgical incision (clean, dry) and + abdominal surgical drain present (10 cc past 8 hours); abdomen not distended Percussion/Palpation: abdomen soft Discharge Data Allergies Allergy/AdvReac Type Severity Reaction Status Date / Time acetaminophen [From Percocet] AdvReac Intermediate Agitation Unverified 05/27/20 17:31 ibuprofen AdvReac Intermediate Not to Unverified 05/27/20 17:31 Take Due to Weight Loss Surgery oxycodone [From Percocet] AdvReac Intermediate Agitation Unverified 05/27/20 17:31 Sulfa (Sulfonamide AdvReac Intermediate Shortness Unverified 05/27/20 17:31 Antibiotics) of Breath Consultations 05/27/20 18:29 ED Decision to Admit Stat Procedures Performed Operation Date: 05/28/20 10:00 Actual Procedures p Open Repair of recurrent Ventral Hernia with Mesh, Extensive Enterolyis, and Umbilectomy(Not Applicable) - Nakul Avery DO Ordered Studies 05/27/20 15:44 CT abd pelvis IV con only Stat Hospital Course (1) Recurrent ventral hernia with incarceration: 34 y/o female h/o gastric bypass presented to the ER with abdominal pain, umbilical bulge, and nausea/vomiting. CT showed incarcerated ventral hernia with partial small bowel obstruction. She was admitted to the surgical service that evening and taken to the operating room in the morning for repair of the hernia with mesh and extensive adhesiolysis. Dilaudid LIVE IN COMPANION was used for postop analgesia given the size of the hernia and extensive dissection. She was able to tolerate an advancing diet. She transitioned to oral analgesics by day three. She was stable for discharge home at that time with KEVIN drain in place and to be removed in the office next week. Total Time Total Time Spent Total Time Spent (In Minutes): 15 Discharge Plan Discharge Items Patient Disposition: Home - Self-Care Reason For Visit: INCARCERATED VENTRAL HERNIA Discharge Diagnosis: hernia repair Activity: As commented below Lifting: No more than 10 pounds Bathing Comment: sponge bath until drain is removed Driving/Machine Use: Resume 3 days after discharge Non-emergency contact: Surgeon Call non-emergency contact if: you have any medication questions, your pain is not controlled, you have a fever, your temperature is above 101.5 and your wound has increased redness Follow-up/Referrals: Nakul Avery DO [Surgeon] - 06/07/20 10:00 am (Call the office to schedule an appt in 1 week, Wednesday 06/07) Patricia Nicolas DO [Primary Care Provider] - Diet: Regular Addtl Attending Provider Instructions: Empty drain 2-3 times daily, record total amount for each day Wear the binder most of the time, can remove when sitting or in a few days for sleeping Pending Studies at Discharge: No Stand-Alone Forms: Work/School Release (ED), [facility] [employer], Opioid Pain Management, Work/School Release (Inpt), Smoking Cessation Medications and DC Order Prescriptions: New hydrocodone-acetaminophen [[place]] 5-325 mg tablet 1 - 2 tab PO Q4H PRN (Reason: pain, initial therapy, max 6 tabs daily) Qty: 18 RF: 0 Continued multivitamin Tablet 1 tab PO QAM RF: 0 vitamin A 8,000 unit Capsule 0 unit PO DAILY RF: 0 cholecalciferol (vitamin D3) [Vitamin D3] 25 mcg (1,000 unit) Capsule 0 mcg PO DAILY RF: 0 calcium citrate 250 mg calcium Tablet 0 mg PO DAILY RF: 0 vitamin K2 40 mcg Tablet 0 mcg PO DAILY RF: 0 Discharge Orders: Discharge Order (Routine); Ordered 05/31/20 Ordered By: Kt Abrams/Other Patient Handouts: Discharge Instructions Caring for ... Admission Data Admit Date/Time: 05/29/20 08:33 Attending Provider: Nakul Avery Admit Provider: Nakul Avery Primary Care Provider: Patricia Nicolas Other Providers: Nakul Avery Other Interventions: Discharge Summary Assessment (RN) Last Done: 05/31/20 12:01 Coding Level of Care Code D/C Day Management <30 mins Diagnoses Recurrent ventral hernia with incarceration K43.0
--- NOTE | 2020-06-12 10:14 | Coding Query ---
BMI To promote full compliance with coding requirements relating to patient care, physician participation is requested in all cases of well logger uncertainty. Please assist us with the question(s) below: Please place an X within the parenthesis (x). If other, please document: BMI 41 was documented in this record for this patient. If the BMI is significant, please check the box that provides a more specific associated diagnosis: ( ) Overweight/Obese ( ) Obesity ( x) Morbid obesity ( ) Obesity Hypoventilation Syndrome (OHS) ( ) Heathy weight, not significant ( ) Underweight/Thin ( ) Other, please specify Thank you Marcia GUTIÉRREZ
== END 2020-05-31 15:05 | disposition home or self-care (01) | DRG 354 ==
LOC: ED 15:28 → 3N 15:28

== ENCOUNTER 2023-11-04 20:34 | Inpatient (IN) ==
[2023-11-04 21:39] LABS: Appearance Urine Cloudy (Clear); Bacteria Urine Automated 1+ (None Seen); Bilirubin Urine 1+ (Negative); Blood Urine Negative (Negative); Calcium Oxalate Crystals Urine Present (None Prsent); Cast Urine Automated 0-2 /lpf (0-2); Color Urine Dark Yellow; Glucose Urine UA Negative (Negative); Ketones Urine Trace (Negative); Leukocyte Esterase Urine Negative (Negative); Nitrite Urine Negative (Negative); Protein Urine Trace (Negative); Specific Gravity Urine 1.041 (1.000-1.030); Urobilinogen Urine Negative (Negative)
--- NOTE | 2023-11-04 21:40 | Emergency Department Note ---
Impression & Plan SBO (small bowel obstruction), Abdominal pain, Elevated lipase ED Provider Note CHIEF COMPLAINT: Abdominal pain, indigestion HISTORY OF PRESENTING ILLNESS: This 37-year-old female patient presents to the emergency department for evaluation of epigastric discomfort, indigestion, and RUQ pain since earlier today. She also has nausea and dry heaves, but no vomiting. She denies any fevers. Denies urinary symptoms or problems with her BMs. Denies constipation or diarrhea. Has been passing gas well. No SOB. She rates her discomfort a 6/10. She took Tums without improvement of her symptoms. She still has her gallbladder and appendix. History of hysterectomy (still has right ovary), gastric bypass surgery, and ventral hernia repair. She has a history of a hiatal hernia and Fierro's Esophagus. Her last EGD was a couple years ago per patient. She takes omeprazole 20 mg QD and feels like her reflux symptoms are usually well controlled. She has a history of a faint intermittent heart murmur that her PCP feels is benign per patient. Denies any other cardiac history. She is unsure if she's had a cardiac workup before. Denies family history of heart problems. She denies tobacco use or vaping. The patient denies recent long car or plane rides or recent injury/trauma/surgery. Denies any personal history of blood clots or bleeding disorders. Denies any family history of blood clots or bleeding disorders. Denies any hormonal medication use. Denies any hemoptysis. Denies leg/calf pain or swelling. REVIEW OF SYSTEMS: See HPI for pertinent positives and pertinent negatives. ALLERGIES: Ibuprofen, Percocet, Sulfa - She is able to take Tylenol MEDICATIONS: Omeprazole 20 mg QD, OTC vitamins PAST MEDICAL HISTORY: GERD, Fierro's Esophagus, hiatal hernia, hysterectomy (still has right ovary), gastric bypass surgery, ventral hernia repair PHYSICAL EXAM: VITALS: Vitals are noted on the nurse's note and reviewed by myself. GENERAL: Non toxic, no acute distress, non-diaphoretic. SKIN: Capillary refill <2 sec. EYES: PERRLA. EOMI. Conjunctivae without injection, sclerae without icterus. NOSE: Patent without discharge. MOUTH: Mucous membranes moist. Uvula midline. Airway patent. NECK: Supple without nuchal rigidity. HEART: Regular rate and rhythm without murmurs gallops or rubs. LUNGS: Clear to auscultation bilaterally without wheezes, rales or rhonchi. No retractions or accessory muscle use. ABDOMEN: Positive bowel sounds x 4. Normal tympanic percussion. Soft, tender to palpation in the right upper quadrant and epigastric area. No tenderness to the remainder of the abdomen. No CVA tenderness. No masses or organomegaly. Wilkinson sign negative. No guarding or rebound tenderness. No focal RLQ or LLQ tenderness. MUSCULOSKELETAL: No gross musculoskeletal defects. NEURO: Patient was alert and oriented. No focal neurological deficits. DIFFERENTIAL DIAGNOSIS: Differential diagnosis includes IN, KIT, PE, hepatitis, pancreatitis, cholecystitis, cholelithiasis, appendicitis, kidney stone, pyelonephritis, UTI, gastritis, gastroenteritis, mesenteric adenitis, obstruction, constipation, hernia, abdominal abscess, perforation, diverticulitis, IBD, ischemic colitis, abdominal aortic aneurysm, ectopic , ovarian cyst, ovarian torsion, acute salpingitis, or others. ED COURSE AND MEDICAL DECISION MAKING: MONITOR: Continuous registered nurse cardiac: Order was placed for continuous registered nurse cardiac. Patient was placed on the registered nurse cardiac and continuous pulse ox. Patient was noted to be in normal sinus rhythm at an initial rate of 68 bpm per my interpretation. EKG: EKG was interpreted by myself as sinus bradycardia at [address] bpm with no acute ST or T wave changes. MEDICATIONS GIVEN: Tylenol 1000 mg IV x 2, 1 L normal saline solution bolus, Pepcid 20 mg IV. INTERPRETATION OF LABS: I interpreted the labs with full lab results as below in the lab section of this note. White blood cell count elevated at 14.92. Hemoglobin normal at 14.1. Platelet count normal 329. CMP without significant abnormalities. Lipase is elevated at 186 (82 ULN). High-sensitivity troponin x 2 were normal. Urinalysis with trace protein, trace ketones, 1+ bilirubin, 6-10 white blood cells, 11-20 red blood cells, 6-10 epithelial cells plus bacteria. Urine culture pending. INTERPRETATION OF IMAGING: Chest x-ray per my interpretation was negative for acute cardiopulmonary etiology. Radiology report still pending. Additional imaging studies were interpreted by myself and read by radiology as per the imaging section of this note. Right upper quadrant ultrasound was normal. CT scan of the abdomen pelvis with IV contrast shows a small bowel obstruction, but no other acute abnormalities. CONSULTATIONS: On-call hospitalist MDM SUMMARY: The patient was seen during a time of extreme volume and extreme acuity. The patient was initially evaluated in a triage room and then re-examined once they were taken back to an exam room. An IV lock was placed and labs were drawn. The patient was given 1 L normal saline solution bolus, Tylenol 1000 mg IV, and Pepcid 20 mg IV. The patient is mainly complaining of right upper quadrant and epigastric abdominal pain, indigestion, and dry heaves. Chest x-ray, EKG, and high-sensitivity troponin x 2 without acute abnormalities and I have a low suspicion for ACS. Right upper quadrant ultrasound was normal. White blood cell count is elevated at 14.92 and lipase elevated at 186. Remainder the laboratory studies as above without significant abnormalities. Due to the patient's continued symptoms with elevated white blood cell count and elevated lipase, a CT scan of the abdomen pelvis was obtained. CT scan of the abdomen pelvis with IV contrast shows a small bowel obstruction. The patient states that she has been having bowel movements and passing gas she is not currently vomiting. Therefore, NG tube was not placed in the ER. Patient has had multiple abdominal surgeries, but no previous history of small bowel obstruction. The patient requested an additional dose of IV Tylenol since she is unable to take NSAIDs and she did not want anything stronger. Since it has been greater than 6 hours, the patient was given another dose of IV Tylenol. The patient will require admission for further evaluation and treatment. I spoke with the on-call hospitalist who agreed to admit the patient for further management. Please refer to their dictation for further details. The patient's care was transferred in stable condition. DIAGNOSIS: Small bowel obstruction Right upper quadrant and epigastric abdominal pain Elevated lipase Past Med/Surg History Problem List (Updated 11/05/23 @ 06:54 by Dimple Stoll PA-C) Elevated lipase (Acute) Abdominal pain (Acute) SBO (small bowel obstruction) (Acute) Lab test negative for COVID-19 virus (Acute) H/O ventral hernia repair (Acute 05/28/20) Open Repair of recurrent Ventral Hernia with Mesh, Extensive Enterolyis, and Umbilectomy Dr. Avery 05/28/2020 Recurrent ventral hernia with incarceration Obesity Hernia (Acute) Medical History Obesity Surgical History H/O gastric bypass H/O ventral hernia repair (05/28/20) Open Repair of recurrent Ventral Hernia with Mesh, Extensive Enterolyis, and Umbilectomy Dr. Avery 05/28/2020 History of hysterectomy for cancer (~04/2019) Uterine S/P hernia repair Social History Smoking Status: Never smoker Hx Alcohol Use: Yes Hx Substance Use: No Preferred Language: Citizen Of [place] Communication Ability: Effective Mold Breaker Required: No Beliefs That Will Affect Care: None marital status: Single Current Living Situation: Significant Other Feels Safe at Home: Yes Assistive Devices: None Allergies Allergies Allergy/AdvReac Type Severity Reaction Status Date / Time Sulfa (Sulfonamide Allergy Severe Shortness Verified 11/04/23 22:48 Antibiotics) of Breath oxycodone [From Percocet] AdvReac Intermediate Agitation Verified 11/04/23 22:48 ibuprofen AdvReac Unknown Not to Verified 11/04/23 22:48 Take Due to Weight Loss Surgery Home Meds Home Medications Medication Instructions Recorded Confirmed cholecalciferol (vitamin D3) 25 0 mcg PO DAILY 05/27/20 11/04/23 mcg (1,000 unit) capsule (Vitamin D3) esomeprazole magnesium 20 mg 20 mg PO DAILYBB 11/04/23 11/04/23 capsule,delayed release ferrous sulfate 325 mg (65 mg 325 mg PO DAILY 11/04/23 11/04/23 iron) tablet (iron) fluoride (sodium) 1.1 % dental 1 applic PO DIRECTED 11/04/23 11/04/23 cream (Denta 5000 Plus) multivitamin 1 tab PO DAILY 11/04/23 11/04/23 vitamin A 3,000 mcg (10,000 unit) 0 mcg PO DAILY 11/04/23 11/04/23 capsule vitamin K2 90 mcg capsule 0 mcg PO DAILY 11/04/23 11/04/23 zinc gluconate 50 mg tablet 0 mg PO DAILY 11/04/23 11/04/23 Results & Data (ED) Vital Signs Vital Signs - 24 hr 11/04/23 20:46 11/04/23 22:17 11/04/23 22:18 Temperature 36.7 C Temperature Source Temporal Artery Scan Pulse Rate 62 Pulse Rate [Apical] 59 L Pulse Rhythm [Apical] Pulse Strength [Apical] Normal Respiratory Rate 19 Respiratory Effort / Characteristics Non-Labored Spontaneous Respiratory Depth Normal Respiratory Pattern Regular Blood Pressure 133/77 Blood Pressure [Right Arm] 131/79 Blood Pressure Mean 95 Blood Pressure Mean [Right Arm] 96 Pulse Oximetry 94 97 98 Oxygen Delivery Method Room Air Room Air Room Air Sepsis Recent Fever Within 48 Hours No Sepsis New/Unexplained Change in Mental Status No Sepsis Action Taken by Nursing No Action Required 11/04/23 22:20 11/04/23 22:45 11/05/23 00:04 Temperature Temperature Source Pulse Rate 61 Pulse Rate [Apical] 66 63 Pulse Rhythm [Apical] Regular Pulse Strength [Apical] Normal Respiratory Rate 18 17 Respiratory Effort / Characteristics Non-Labored Spontaneous Non-Labored Spontaneous Respiratory Depth Normal Normal Respiratory Pattern Regular Regular Blood Pressure Blood Pressure [Right Arm] 158/101 H 146/70 H Blood Pressure Mean Blood Pressure Mean [Right Arm] 120 95 Pulse Oximetry 96 98 Oxygen Delivery Method Room Air Room Air Sepsis Recent Fever Within 48 Hours Sepsis New/Unexplained Change in Mental Status Sepsis Action Taken by Nursing 11/05/23 02:13 11/05/23 02:55 11/05/23 04:01 Temperature Temperature Source Pulse Rate 52 L Pulse Rate [Apical] 56 L 60 Pulse Rhythm [Apical] Pulse Strength [Apical] Respiratory Rate 24 18 Respiratory Effort / Characteristics Non-Labored Spontaneous Respiratory Depth Normal Respiratory Pattern Regular Blood Pressure Blood Pressure [Right Arm] 156/81 H Blood Pressure Mean Blood Pressure Mean [Right Arm] 106 Pulse Oximetry 98 99 Oxygen Delivery Method Room Air Room Air Sepsis Recent Fever Within 48 Hours Sepsis New/Unexplained Change in Mental Status Sepsis Action Taken by Nursing 11/05/23 04:28 11/05/23 06:00 11/05/23 06:10 Temperature Temperature Source Pulse Rate 52 L Pulse Rate [Apical] 50 L Pulse Rhythm [Apical] Regular Pulse Strength [Apical] Normal Respiratory Rate 16 Respiratory Effort / Characteristics Non-Labored Spontaneous Respiratory Depth Normal Respiratory Pattern Blood Pressure Blood Pressure [Right Arm] 140/85 Blood Pressure Mean Blood Pressure Mean [Right Arm] 103 Pulse Oximetry 98 98 Oxygen Delivery Method Room Air Room Air Sepsis Recent Fever Within 48 Hours Sepsis New/Unexplained Change in Mental Status Sepsis Action Taken by Nursing Laboratory Data 11/04/23 21:05 11/04/23 21:05 Lab Results 11/04/23 11/04/23 11/05/23 Range/Units 21:05 21:08 01:49 WBC 14.92 H (4.8-10.8) K/ul RBC 5.20 (4.20-5.40) M/uL Hgb 14.1 (12.0-16.0) g/dl Hct 44.9 (37.0-47.0) % MCV 86.3 (80.0-100.0) fL MCH 27.1 (25.0-34.0) pg MCHC 31.4 L (32.0-36.0) g/dL RDW Std Deviation 48.7 H (36.4-46.3) fL RDW Coeff of Maura 15.6 H (11.5-14.5) % Plt Count 329 (130-400) K/uL MPV 10.1 (9.4-12.4) fL Immature Gran % (Auto) 0.3 % Neut % (Auto) 73.2 % Lymph % (Auto) 19.3 % [place] % (Auto) 5.7 % Eos % (Auto) 1.2 % Baso % (Auto) 0.3 % Neut # (Auto) 10.91 H (1.40-6.50) K/uL Lymph # (Auto) 2.88 (1.20-3.40) K/uL [place] # (Auto) 0.85 H (0.11-0.59) K/uL Eos # (Auto) 0.18 (0.00-0.50) K/uL Baso # (Auto) 0.05 (0.00-0.20) K/uL Immature Gran # (Auto) 0.05 (0.01-0.20) K/uL Sodium 137 (136-145) mmol/L Potassium 4.4 (3.5-5.1) mmol/L Chloride 106 (98-107) mmol/L Carbon Dioxide 21 (21-32) mmol/L Anion Gap 10 (3-11) BUN 13 (6-23) mg/dl Creatinine 0.45 L (0.6-1.2) mg/dl Est Cr Clr Drug Dosing 174.8 ml/min Est GFR ( Amer) 146.3 ml/min Est GFR (Non-Af Amer) 126.2 ml/min BUN/Creatinine Ratio 28.9 H (10-20) Glucose 86 (70-99(Fasting)) mg/dl Calcium 8.7 (8.6-10.3) mg/dl Total Bilirubin 0.3 (0.2-1.0) mg/dl AST 25 (13-39) U/L ALT 19 (7-52) U/L Alkaline Phosphatase 93 (34-104) U/L Troponin I High Sens 2.5 3.6 (0-14) pg/ml Total Protein 8.0 (6.0-8.3) gm/dl Albumin 4.3 (3.4-5.0) gm/dl Globulin 3.7 (2.5-4.0) gm/dl Albumin/Globulin Ratio 1.2 (0.9-2) Lipase 186 H (11-82) U/L Urine Color Dark Yellow Urine Appearance Cloudy A (Clear) Urine pH 5.0 (4.5-7.5) Ur Specific [place] 1.041 H (1.000-1.030) Urine Protein Trace H (Negative) Urine Glucose (UA) Negative (Negative) Urine Ketones Trace H (Negative) Urine Blood Negative (Negative) Urine Nitrite Negative (Negative) Urine Bilirubin 1+ H (Negative) Urine Urobilinogen Negative (Negative) Ur Leukocyte Esterase Negative (Negative) Urine WBC (Auto) 6-10 H (0-5) /hpf Urine RBC (Auto) 11-20 H (0-2) /hpf U Hyaline Cast (Auto) 0-2 (0-2) /lpf U Epithel Cells (Auto) 6-10 H (0-2) /hpf Urine Bacteria (Auto) 1+ H (None Seen) Calcium Oxalate Crystal Present A (None Prsent) Administered Medications Discontinued Medications Famotidine (Pepcid 20mg Iv Push) 20 mg in 5 mls @ 2.5 mls/min IV NOW STA Stop: 11/04/23 21:53 Last Admin: 11/04/23 22:15 Dose: 2.5 mls/min Documented By: AMANDA Sodium Chloride (Nss) 1,000 mls @ 999 mls/hr IV .Q1H1M ONE Stop: 11/04/23 22:52 Last Infusion: 11/04/23 22:44 Dose: Infused Documented By: Admin: 11/04/23 22:14 Dose: 999 mls/hr Documented By: GGG Acetaminophen (Ofirmev) 1,000 mg in 100 mls @ 400 mls/hr IV NOW STA Stop: 11/04/23 22:07 Last Infusion: 11/04/23 22:44 Dose: Infused Documented By: Admin: 11/04/23 22:16 Dose: 400 mls/hr Documented By: AMANDA Acetaminophen (Ofirmev) 1,000 mg in 100 mls @ 400 mls/hr IV NOW STA Stop: 11/05/23 04:35 Last Infusion: 11/05/23 05:20 Dose: Infused Documented By: Admin: 11/05/23 05:01 Dose: 400 mls/hr Documented By: DUNCAN Ioversol (Optiray 320 100ml) 90 ml IV ONCE ONE Stop: 11/05/23 01:24 Last Admin: 11/05/23 01:23 Dose: 90 ml Documented By: PLW Imaging Data Radiologist's Impression: Liver Ultrasound 11/04/23 21:52 Exam(s): US LIVER EXAM: US Abdomen Limited CLINICAL HISTORY: Reason for exam: RUQ and epigastric abdominal pain - eval GB/liver. TECHNIQUE: Real-time ultrasound of the abdomen with image documentation. COMPARISON: No relevant prior studies available. FINDINGS: Liver is within normal limits No gallbladder wall thickening or pericholecystic fluid Bile duct is within normal limits measuring the 0.6 mm . IMPRESSION: No cholelithiasis or sonographic evidence of acute cholecystitis Electronically signed by: Oni De La Fuente MD 11/05/23 02:49 AM Abdomen/Pelvis CT 11/05/23 01:05 Exam(s): CT ABDOMEN + PELVIS With Contrast IV Amt: 90 ml opti 320 EXAM: CT Abdomen and Pelvis With Intravenous Contrast CLINICAL HISTORY: Reason for exam: RUQ and epigastric pain with elev lipase. TECHNIQUE: Axial computed tomography images of the abdomen and pelvis with intravenous contrast. CTDI is 28.14 mGy and DLP is 1408.89 mGy-cm. Automated exposure control was utilized for the study. A dose lowering technique was utilized adhering to the principles of ALARA. CONTRAST: Patient received 90 ml opti 320 of IV contrast COMPARISON: 05/15/2022 FINDINGS: Lung bases: Unremarkable. No mass. No consolidation. ABDOMEN: Liver: Unremarkable. No mass. Gallbladder and bile ducts: Unremarkable. No calcified stones. No ductal dilation. Pancreas: Unremarkable. No mass. No ductal dilation. Spleen: Unremarkable. No splenomegaly. Adrenals: Unremarkable. No mass. Kidneys and ureters: Unremarkable. No solid mass. No hydronephrosis. Stomach and bowel: Small bowel obstruction with a transition point in the right lower quadrant. No mucosal thickening. PELVIS: Appendix: No findings to suggest acute appendicitis. Bladder: Unremarkable. No mass. Reproductive: Unremarkable as visualized. ABDOMEN and PELVIS: Intraperitoneal space: Unremarkable. No free air. No significant fluid collection. Bones/joints: No acute fracture. No dislocation. Soft tissues: Unremarkable. Vasculature: Unremarkable. No abdominal aortic aneurysm. Lymph nodes: Unremarkable. No enlarged lymph nodes. IMPRESSION: Small bowel obstruction Electronically signed by: Oni De La Fuente MD 11/05/23 04:12 AM Discharge Plan Visit Data Chief Complaint: Chest Pain Stated Complaint: CHEST PAIN, INDGESTION, ED Provider: Ayush Oates ED Midlevel Provider: Dimple Stoll Discharge Problem: SBO (small bowel obstruction), Abdominal pain, Elevated lipase Patient Disposition: Admitted As Inpatient Condition: Good Discharge Instructions Interventions: ED Discharge Assessment Last Done: 11/05/23 06:34 Prescriptions Prescriptions: No Action cholecalciferol (vitamin D3) [Vitamin D3] 25 mcg (1,000 unit) Capsule 0 mcg PO DAILY Rx Instructions: PT UNSURE OF STRENGTH multivitamin Tablet 1 tab PO DAILY vitamin A 3,000 mcg (10,000 unit) Capsule 0 mcg PO DAILY Rx Instructions: PT UNSURE OF STRENGTH ferrous sulfate [iron] 325 mg (65 mg iron) Tablet 325 mg PO DAILY zinc gluconate 50 mg Tablet 0 mg PO DAILY Rx Instructions: PT UNSURE OF STRENGTH esomeprazole magnesium 20 mg capsule,delayed release(DR/EC) 20 mg PO DAILYBB fluoride (sodium) [Denta 5000 Plus] 1.1 % cream 1 applic PO DIRECTED vitamin K2 90 mcg Capsule 0 mcg PO DAILY Rx Instructions: PT UNSURE OF STRENGTH Discharge Problem: Abdominal pain Qualifiers: Abdominal location: upper abdomen, unspecified Qualified Code(s): R10.10 - Upper abdominal pain, unspecified
[2023-11-04 21:54] LABS: Basophils # (auto) 0.05 K/uL (0.00-0.20); Basophils % (auto) 0.3 %; Eosinophils # (auto) 0.18 K/uL (0.00-0.50); Eosinophils % (auto) 1.2 %; Hematocrit (blood only) 44.9 % (37.0-47.0); Hemoglobin 14.1 g/dl (12.0-16.0); Immature Granulocytes # (auto) 0.05 K/uL (0.01-0.20); Immature Granulocytes % (auto) 0.3 %; Lymphocytes # (auto) 2.88 K/uL (1.20-3.40); Lymphocytes % (auto) 19.3 %; Mean Corpuscular Hemoglobin 27.1 pg (25.0-34.0); Mean Corpuscular Hgb Conc 31.4 g/dL (32.0-36.0); Mean Corpuscular Volume 86.3 fL (80.0-100.0); Mean Platelet Volume 10.1 fL (9.4-12.4); Monocytes # (auto) 0.85 K/uL (0.11-0.59); Monocytes % (auto) 5.7 %; Neutrophils # (auto) 10.91 K/uL (1.40-6.50); Neutrophils % (auto) 73.2 %; Platelet Count 329 K/uL (130-400); RDW Coefficient of Variation 15.6 % (11.5-14.5); RDW Standard Deviation 48.7 fL (36.4-46.3); White Blood Count 14.92 K/ul (4.8-10.8)
[2023-11-04] MEDS: SODIUM CHLORIDE 0.9% 1,000 ML IV ONE (22:14)
[2023-11-04] MEDS: FAMOTIDINE 20MG IV PUSH 20 MG/5 ML SYR IV STA (22:15)
[2023-11-04] MEDS: ACETAMINOPHEN 1,000 MG/100 ML VIAL IV STA (22:16)
[2023-11-04 22:18] LABS: Troponin I High Sensitivity 2.5 pg/ml (0-14)
[2023-11-04 22:22] LABS: Albumin Level 4.3 gm/dl (3.4-5.0); Bilirubin,Total 0.3 mg/dl (0.2-1.0); Calcium 8.7 mg/dl (8.6-10.3); Potassium 4.4 mmol/L (3.5-5.1)
[2023-11-04 22:28] LABS: Albumin Globulin Ratio 1.2 (0.9-2); BUN Creatinine Ratio 28.9 (10-20); Creatinine Clr Calc Pharmacy 174.8 ml/min; Est GFR (African American) 146.3 ml/min; Est GFR (Non-African American) 126.2 ml/min; Globulin 3.7 gm/dl (2.5-4.0)
[2023-11-05] MEDS: OPTIRAY 320 100ml IV ONE (01:23)
--- NOTE | 2023-11-05 02:50 | Ultrasound Report ---
Exam(s): US LIVER EXAM: US Abdomen Limited CLINICAL HISTORY: Reason for exam: RUQ and epigastric abdominal pain - eval GB/liver. TECHNIQUE: Real-time ultrasound of the abdomen with image documentation. COMPARISON: No relevant prior studies available. FINDINGS: Liver is within normal limits No gallbladder wall thickening or pericholecystic fluid Bile duct is within normal limits measuring the 0.6 mm . IMPRESSION: No cholelithiasis or sonographic evidence of acute cholecystitis Electronically signed by: Oni De La Fuente MD 11/05/23 02:49 AM
--- NOTE | 2023-11-05 04:12 | CT Scan Report ---
Exam(s): CT ABDOMEN + PELVIS With Contrast IV Amt: 90 ml opti 320 EXAM: CT Abdomen and Pelvis With Intravenous Contrast CLINICAL HISTORY: Reason for exam: RUQ and epigastric pain with elev lipase. TECHNIQUE: Axial computed tomography images of the abdomen and pelvis with intravenous contrast. CTDI is 28.14 mGy and DLP is 1408.89 mGy-cm. Automated exposure control was utilized for the study. A dose lowering technique was utilized adhering to the principles of ALARA. CONTRAST: Patient received 90 ml opti 320 of IV contrast COMPARISON: 05/15/2022 FINDINGS: Lung bases: Unremarkable. No mass. No consolidation. ABDOMEN: Liver: Unremarkable. No mass. Gallbladder and bile ducts: Unremarkable. No calcified stones. No ductal dilation. Pancreas: Unremarkable. No mass. No ductal dilation. Spleen: Unremarkable. No splenomegaly. Adrenals: Unremarkable. No mass. Kidneys and ureters: Unremarkable. No solid mass. No hydronephrosis. Stomach and bowel: Small bowel obstruction with a transition point in the right lower quadrant. No mucosal thickening. PELVIS: Appendix: No findings to suggest acute appendicitis. Bladder: Unremarkable. No mass. Reproductive: Unremarkable as visualized. ABDOMEN and PELVIS: Intraperitoneal space: Unremarkable. No free air. No significant fluid collection. Bones/joints: No acute fracture. No dislocation. Soft tissues: Unremarkable. Vasculature: Unremarkable. No abdominal aortic aneurysm. Lymph nodes: Unremarkable. No enlarged lymph nodes. IMPRESSION: Small bowel obstruction Electronically signed by: Oni De La Fuente MD 11/05/23 04:12 AM
[2023-11-05] MEDS: ACETAMINOPHEN 1,000 MG/100 ML VIAL IV STA (05:01)
--- NOTE | 2023-11-05 05:14 | History & Physical Report ---
Date of Service November 05, 2023 Assessment & Plan (1) SBO (small bowel obstruction): Plan: 37-year-old female with past medical history significant for PVCs, obesity, history of Fierro's esophagus with dysplasia, history of Brown, history of anemia due to chronic blood loss, history of endometrial cancer, s/p biliopancreatic diversion with duodenal switch, history of gastric bypass surgery, history of sleep apnea no longer on BiPAP presents with epigastric ab dominal pain and found to have small bowel obstruction. Yesterday evening patient noticed pain in her upper abdomen in epigastric region felt like indigestion and also had a couple of sharp pains in the right upper abdomen for few seconds. Currently her epigastric abdomen pain resolved. Was nauseous. Currently passing gas. Just had a bowel movement. It was diarrhea. No blood in the stools. Micturating okay. No chest pain or shortness of breath. No headache. No dizziness. No blurred visions. No runny nose or sore throat. No cough. No difficulty swallowing. Currently resting comfortably and hemodynamically stable. Abdominal pain small bowel obstruction on CAT scan history of gastric bypass surgery will keep her n.p.o., IV fluids, IV antiemetics as needed, IV Dilaudid as needed follow KUB in a.m. surgery consult history of Fierro'sl esophagus with dysplasia continue Nexium IV Pepcid elevated lipase lipase 186 mostly nonspecific will monitor.. possible UTI Leukocytosis IV Rocephin will follow cultures DVT prophylaxis Lovenox disposition medical floor full code History of Present Illness Chief Complaint: small bowel obstruction Primary Care Provider: Patricia Nicolas DO 37-year-old female with past medical history significant for PVCs, obesity, history of Fierro's esophagus with dysplasia, history of Brown, history of anemia due to chronic blood loss, history of endometrial cancer, s/p biliopancreatic diversion with duodenal switch, history of gastric bypass surgery, history of sleep apnea no longer on BiPAP presents with epigastric abdominal pain and found to have small bowel obstruction. Yesterday evening patient noticed pain in her upper abdomen in epigastric region felt like indigestion and also had a couple of sharp pains in the right upper abdomen for few seconds. Currently her epigastric abdomen pain resolved. Was nauseous. Currently passing gas. Just had a bowel movement. It was diarrhea. No blood in the stools. Micturating okay. No chest pain or shortness of breath. No headache. No dizziness. No blurred visions. No runny nose or sore throat. No cough. No difficulty swallowing. Currently resting comfortably and hemodynamically stable. Past medical history. As mentioned above past surgical history. Colonoscopy. Dilatation curettage. EGD. Laparoscopic gastric restrictive procedure and partial gastrectomy pylorus-preserving. Hysteroscopy with biopsy. S/p IUD. Laparoscopic sleeve of liver. Umbilical hernia repair. Removal of pelvic contents for tumor. Repair of inguinal hernia. Total hysterectomy with unilateral oophorectomy. Social history. No smoking. No alcohol use. No drug use. Family history. Maternal aunt had breast cancer. Paternal grandfather had colon cancer. Prostate cancer. Skin cancer. Paternal grandmother had diabetes. Allergies Allergy/AdvReac Type Severity Reaction Status Date / Time Sulfa (Sulfonamide Allergy Severe Shortness Verified 11/04/23 22:48 Antibiotics) of Breath oxycodone [From Percocet] AdvReac Intermediate Agitation Verified 11/04/23 22:48 ibuprofen AdvReac Unknown Not to Verified 11/04/23 22:48 Take Due to Weight Loss Surgery Home Medications Medication Instructions Recorded Confirmed Type cholecalciferol (vitamin D3) 25 0 mcg PO DAILY 05/27/20 11/04/23 History mcg (1,000 unit) capsule (Vitamin D3) esomeprazole magnesium 20 mg 20 mg PO DAILYBB 11/04/23 11/04/23 History capsule,delayed release ferrous sulfate 325 mg (65 mg 325 mg PO DAILY 11/04/23 11/04/23 History iron) tablet (iron) fluoride (sodium) 1.1 % dental 1 applic PO DIRECTED 11/04/23 11/04/23 History cream (Denta 5000 Plus) multivitamin 1 tab PO DAILY 11/04/23 11/04/23 History vitamin A 3,000 mcg (10,000 unit) 0 mcg PO DAILY 11/04/23 11/04/23 History capsule vitamin K2 90 mcg capsule 0 mcg PO DAILY 11/04/23 11/04/23 History zinc gluconate 50 mg tablet 0 mg PO DAILY 11/04/23 11/04/23 History Past Med/Surg History Problem List (Updated 11/05/23 @ 06:54 by Dimple Stoll PA-C) Elevated lipase (Acute) Abdominal pain (Acute) SBO (small bowel obstruction) (Acute) Lab test negative for COVID-19 virus (Acute) H/O ventral hernia repair (Acute 05/28/20) Open Repair of recurrent Ventral Hernia with Mesh, Extensive Enterolyis, and Umbilectomy Dr. Avery 05/28/2020 Recurrent ventral hernia with incarceration Obesity Hernia (Acute) Medical History Obesity Surgical History H/O gastric bypass H/O ventral hernia repair (05/28/20) Open Repair of recurrent Ventral Hernia with Mesh, Extensive Enterolyis, and Umbilectomy Dr. Avery 05/28/2020 History of hysterectomy for cancer (~04/2019) Uterine S/P hernia repair Social History Smoking Status: Never smoker Hx Alcohol Use: Yes Hx Substance Use: No Preferred Language: Portuguese Communication Ability: Effective Top Lift Scourer Required: No Beliefs That Will Affect Care: None marital status: Single Current Living Situation: Parent Feels Safe at Home: Yes Safety Concerns: Feels Safe At This Time Assistive Devices: None Review of Systems Review of Systems: All systems reviewed & are unremarkable except as noted in HPI & below Physical Exam Physical Exam: General- Not in distress Head- atraumatic Eyes- PERRL. ENT- oropharynx clear Neck- supple, no JVD. Lungs- clear to auscultation no wheezing or crackles Heart- regular rate and ; no murmur, no gallop. Abdomen- very sluggish bowel sounds, soft, nontender, no distension. Extremities- no pretibial edema, no erythema seen. Neuro- alert, oriented PERRL, no facial palsy; no dysarthria; moves extremities. Results & Data Results & Data Vital Signs (Past 12 Hours) Vital Signs Temp Pulse Pulse Resp BP BP Pulse Ox 11/05/23 04:01 60 18 156/81 H 99 11/05/23 02:55 56 L 24 98 11/05/23 02:13 52 L 11/05/23 00:04 63 17 146/70 H 98 11/04/23 22:45 66 18 158/101 H 96 11/04/23 22:20 61 11/04/23 22:18 98 11/04/23 22:17 59 L 19 131/79 97 11/04/23 20:46 36.7 C 62 133/77 94 O2 Del Method 11/05/23 04:01 Room Air 11/05/23 02:55 Room Air 11/05/23 02:13 11/05/23 00:04 Room Air 11/04/23 22:45 Room Air 11/04/23 22:20 11/04/23 22:18 Room Air 11/04/23 22:17 Room Air 11/04/23 20:46 Room Air Diagnostic Findings Laboratory Results WBC 14.92 K/ul (4.8-10.8) H 11/04/23 21:05 RBC 5.20 M/uL (4.20-5.40) 11/04/23 21:05 Hgb 14.1 g/dl (12.0-16.0) 11/04/23 21:05 Hct 44.9 % (37.0-47.0) 11/04/23 21:05 MCV 86.3 fL (80.0-100.0) 11/04/23 21:05 MCH 27.1 pg (25.0-34.0) 11/04/23 21:05 MCHC 31.4 g/dL (32.0-36.0) L 11/04/23 21:05 RDW Std Deviation 48.7 fL (36.4-46.3) H 11/04/23 21:05 RDW Coeff of Maura 15.6 % (11.5-14.5) H 11/04/23 21:05 Plt Count 329 K/uL (130-400) 11/04/23 21:05 MPV 10.1 fL (9.4-12.4) 11/04/23 21:05 Immature Gran % (Auto) 0.3 % 11/04/23 21:05 Neut % (Auto) 73.2 % 11/04/23 21:05 Lymph % (Auto) 19.3 % 11/04/23 21:05 Forest % (Auto) 5.7 % 11/04/23 21:05 Eos % (Auto) 1.2 % 11/04/23 21:05 Baso % (Auto) 0.3 % 11/04/23 21:05 Neut # (Auto) 10.91 K/uL (1.40-6.50) H 11/04/23 21:05 Lymph # (Auto) 2.88 K/uL (1.20-3.40) 11/04/23 21:05 Forest # (Auto) 0.85 K/uL (0.11-0.59) H 11/04/23 21:05 Eos # (Auto) 0.18 K/uL (0.00-0.50) 11/04/23 21:05 Baso # (Auto) 0.05 K/uL (0.00-0.20) 11/04/23 21:05 Immature Gran # (Auto) 0.05 K/uL (0.01-0.20) 11/04/23 21:05 Sodium 137 mmol/L (136-145) 11/04/23 21:05 Potassium 4.4 mmol/L (3.5-5.1) 11/04/23 21:05 Chloride 106 mmol/L (98-107) 11/04/23 21:05 Carbon Dioxide 21 mmol/L (21-32) 11/04/23 21:05 Anion Gap 10 (3-11) 11/04/23 21:05 BUN 13 mg/dl (6-23) 11/04/23 21:05 Creatinine 0.45 mg/dl (0.6-1.2) L 11/04/23 21:05 Est Cr Clr Drug Dosing 174.8 ml/min 11/04/23 21:05 Est GFR ( Amer) 146.3 ml/min 11/04/23 21:05 Est GFR (Non-Af Amer) 126.2 ml/min 11/04/23 21:05 BUN/Creatinine Ratio 28.9 (10-20) H 11/04/23 21:05 Glucose 86 mg/dl (70-99(Fasting)) 11/04/23 21:05 Calcium 8.7 mg/dl (8.6-10.3) 11/04/23 21:05 Total Bilirubin 0.3 mg/dl (0.2-1.0) 11/04/23 21:05 AST 25 U/L (13-39) 11/04/23 21:05 ALT 19 U/L (7-52) 11/04/23 21:05 Alkaline Phosphatase 93 U/L (34-104) 11/04/23 21:05 Troponin I High Sens 3.6 pg/ml (0-14) 11/05/23 01:49 Total Protein 8.0 gm/dl (6.0-8.3) 11/04/23 21:05 Albumin 4.3 gm/dl (3.4-5.0) 11/04/23 21:05 Globulin 3.7 gm/dl (2.5-4.0) 11/04/23 21:05 Albumin/Globulin Ratio 1.2 (0.9-2) 11/04/23 21:05 Lipase 186 U/L (11-82) H 11/04/23 21:05 Urine Color Dark Yellow 11/04/23 21:08 Urine Appearance Cloudy (Clear) A 11/04/23 21:08 Urine pH 5.0 (4.5-7.5) 11/04/23 21:08 Ur Specific Arthur 1.041 (1.000-1.030) H 11/04/23 21:08 Urine Protein Trace (Negative) H 11/04/23 21:08 Urine Glucose (UA) Negative (Negative) 11/04/23 21:08 Urine Ketones Trace (Negative) H 11/04/23 21:08 Urine Blood Negative (Negative) 11/04/23 21:08 Urine Nitrite Negative (Negative) 11/04/23 21:08 Urine Bilirubin 1+ (Negative) H 11/04/23 21:08 Urine Urobilinogen Negative (Negative) 11/04/23 21:08 Ur Leukocyte Esterase Negative (Negative) 11/04/23 21:08 Urine WBC (Auto) 6-10 /hpf (0-5) H 11/04/23 21:08 Urine RBC (Auto) 11-20 /hpf (0-2) H 11/04/23 21:08 U Hyaline Cast (Auto) 0-2 /lpf (0-2) 11/04/23 21:08 U Epithel Cells (Auto) 6-10 /hpf (0-2) H 11/04/23 21:08 Urine Bacteria (Auto) 1+ (None Seen) H 11/04/23 21:08 Calcium Oxalate Crystal Present (None Prsent) A 11/04/23 21:08 Impressions Liver Ultrasound 11/04/23 21:52 Exam(s): US LIVER EXAM: US Abdomen Limited CLINICAL HISTORY: Reason for exam: RUQ and epigastric abdominal pain - eval GB/liver. TECHNIQUE: Real-time ultrasound of the abdomen with image documentation. COMPARISON: No relevant prior studies available. FINDINGS: Liver is within normal limits No gallbladder wall thickening or pericholecystic fluid Bile duct is within normal limits measuring the 0.6 mm . IMPRESSION: No cholelithiasis or sonographic evidence of acute cholecystitis Electronically signed by: Oni De La Fuente MD 11/05/23 02:49 AM Abdomen/Pelvis CT 11/05/23 01:05 Exam(s): CT ABDOMEN + PELVIS With Contrast IV Amt: 90 ml opti 320 EXAM: CT Abdomen and Pelvis With Intravenous Contrast CLINICAL HISTORY: Reason for exam: RUQ and epigastric pain with elev lipase. TECHNIQUE: Axial computed tomography images of the abdomen and pelvis with intravenous contrast. CTDI is 28.14 mGy and DLP is 1408.89 mGy-cm. Automated exposure control was utilized for the study. A dose lowering technique was utilized adhering to the principles of ALARA. CONTRAST: Patient received 90 ml opti 320 of IV contrast COMPARISON: 05/15/2022 FINDINGS: Lung bases: Unremarkable. No mass. No consolidation. ABDOMEN: Liver: Unremarkable. No mass. Gallbladder and bile ducts: Unremarkable. No calcified stones. No ductal dilation. Pancreas: Unremarkable. No mass. No ductal dilation. Spleen: Unremarkable. No splenomegaly. Adrenals: Unremarkable. No mass. Kidneys and ureters: Unremarkable. No solid mass. No hydronephrosis. Stomach and bowel: Small bowel obstruction with a transition point in the right lower quadrant. No mucosal thickening. PELVIS: Appendix: No findings to suggest acute appendicitis. Bladder: Unremarkable. No mass. Reproductive: Unremarkable as visualized. ABDOMEN and PELVIS: Intraperitoneal space: Unremarkable. No free air. No significant fluid collection. Bones/joints: No acute fracture. No dislocation. Soft tissues: Unremarkable. Vasculature: Unremarkable. No abdominal aortic aneurysm. Lymph nodes: Unremarkable. No enlarged lymph nodes. IMPRESSION: Small bowel obstruction Electronically signed by: Oni De La Fuente MD 11/05/23 04:12 AM ECG Additional Comments: ECG sinus bradycardia rate of 58. No acute ST changes seen. Code Status & VTE Plan VTE Prophylaxis Plan VTE Prophylaxis will be ordered: Yes
[2023-11-05] MEDS ORDERED: ONDANSETRON INJ 2 MG/ML 2 ML VIAL IV PRN (07:02)
[2023-11-05] MEDS ORDERED: ACETAMINOPHEN 1,000 MG/100 ML VIAL IV PRN (07:02)
[2023-11-05] MEDS: SODIUM CHLORIDE 0.9% 1,000 ML IV SCH (07:12)
[2023-11-05] MEDS: FAMOTIDINE 20MG IV PUSH 20 MG/5 ML SYR IV SCH (07:37)
[2023-11-05] MEDS: cefTRIAXone SODIUM 2,000 MG/50 ML BAG IV SCH (07:38)
[2023-11-05] MEDS ORDERED: HYDROmorphone INJ 0.5 MG/0.5 ML SYR IV PRN (07:39)
--- NOTE | 2023-11-05 07:40 | XRay Report ---
XR chest 1V portable CLINICAL HISTORY: Chest pain, nonspecific TECHNIQUE: Single frontal radiograph of the chest was obtained. Comparison: None available at the time of this dictation. FINDINGS: No lines and tubes are seen. The cardiomediastinal silhouette is normal. The lungs are clear. No evid ence of pleural effusion or pneumothorax. IMPRESSION: No acute chest disease. ACT 112: Negative or not required by law. Electronically signed by: Alex Fried M.D. 11/05/2023 7:39 AM
[2023-11-05 07:57] LABS: Basophils # (auto) 0.05 K/uL (0.00-0.20); Basophils % (auto) 0.5 %; Eosinophils # (auto) 0.22 K/uL (0.00-0.50); Eosinophils % (auto) 2.1 %; Hemoglobin 11.9 g/dl (12.0-16.0); Immature Granulocytes # (auto) 0.04 K/uL (0.01-0.20); Immature Granulocytes % (auto) 0.4 %; Lymphocytes # (auto) 2.35 K/uL (1.20-3.40); Lymphocytes % (auto) 21.9 %; Mean Corpuscular Hemoglobin 26.5 pg (25.0-34.0); Mean Corpuscular Hgb Conc 30.5 g/dL (32.0-36.0); Mean Corpuscular Volume 86.9 fL (80.0-100.0); Mean Platelet Volume 10.1 fL (9.4-12.4); Monocytes # (auto) 0.82 K/uL (0.11-0.59); Monocytes % (auto) 7.6 %; Neutrophils # (auto) 7.24 K/uL (1.40-6.50); Neutrophils % (auto) 67.5 %; Platelet Count 291 K/uL (130-400); RDW Coefficient of Variation 15.7 % (11.5-14.5); RDW Standard Deviation 49.5 fL (36.4-46.3); Red Blood Count 4.49 M/uL (4.20-5.40); White Blood Count 10.72 K/ul (4.8-10.8)
[2023-11-05 08:10] LABS: Anion Gap 5 (3-11); BUN Creatinine Ratio 30.6 (10-20); Blood Urea Nitrogen 11 mg/dl (6-23); Calcium 7.7 mg/dl (8.6-10.3); Carbon Dioxide 25 mmol/L (21-32); Chloride 109 mmol/L (98-107); Creatinine Clr Calc Pharmacy 218.5 ml/min; Est GFR (African American) > 150.0 ml/min; Est GFR (Non-African American) 135.8 ml/min; Glucose 96 mg/dl (70-99(Fasting)); Magnesium 1.9 mg/dl (1.7-2.4); Potassium 3.9 mmol/L (3.5-5.1); Sodium 139 mmol/L (136-145)
[2023-11-05] MEDS: PANTOprazole 40 MG TAB PO SCH (08:39)
[2023-11-05] MEDS: ENOXAPARIN INJ 40 MG/0.4 ML SYR SQ SCH (08:39)
[2023-11-05] MEDS: MULTIVITAMIN TAB PO SCH (08:39)
--- NOTE | 2023-11-05 09:46 | XRay Report ---
XR KUB/Abdomen 1 view CLINICAL HISTORY: SBO TECHNIQUE: 1 view of the abdomen was obtained. Comparison: Comparison is made to CT abdomen pelvis 11/05/2023 FINDINGS: Lung bases are unremarkable. Degenerative changes are seen in the visualized skeleton. A few gas dila martha loops of small bowel measure up to 45 mm. Small stool burden is seen. IMPRESSION: Findings compatible with continued small bowel obstruction. ACT 112: Negative or not required by law. Electronically signed by: Alex Fried M.D. 11/05/2023 9:44 AM
--- NOTE | 2023-11-05 10:05 | Surgery Consultation ---
Date of Consultation November 05, 2023 Assessment & Plan (1) SBO (small bowel obstruction): This is a 37yF with a PMH/PSH of hysterectomy for endometrial ca, gastric bypass with duodenal switch at [place] 2019, ventral hernia repair who presents to the [facility] ED on 11/03 with complaints of epigastric abdominal pain, nausea and dry heaves. Due to her symptoms she presented to the ER where a CT a/p was obtained that revealed findings concerning for SBO. A RUQ US obtained revealed no pathology. Patient was admitted under the medical service with surgical consultation. Since admission she has been feeling better. Currently denies any abdominal pain or nausea. Had + BM and is passing maybe some small amounts of g as. Vital signs are stable. Labs show WBC 10, hbg 11, Cr 0.3, K 3.9. On exam abdomen soft and non tender. Patient clinically appears improving and bowel function returning. Will allow the start of clear liquids, if this goes well may slowly continue to advance diet as tolerates. Likely remain in house today with dispo tomorrow pending ongoing resolution of SBO and medical clearance. If worsens can consider NGT, but not necessary. No surgery indicated at this time, and if came to that point likely tsfer due to history of duodenal switch anatomy. Supervising Physician Co-Signing Physician Notes I personally saw and evaluated the patient with Roberta Copeland PA-C and agree with the assessment and plan. 37 yo female with history of DS here with resolving SBO Her CT images and results were personally viewed and interpreted by myself She is already without abdominal pain and had a BM this morning Start clear liquids and advance as tolerated She can likely go home tomorrow if she is able to tolerate a diet Will follow History of Present Illness Attending Physician: Kate Bro MD History of Present Illness This is a 37yF with a PMH/PSH of hysterectomy for endometrial ca, gastric bypass with duodenal switch at [place] 2019, ventral hernia repair who presents to the [facility] ED on 11/03 with complaints of epigastric abdominal pain. This was associated with nausea and dry heaves. She thought it was related to indigestion but was not improving at home. Due to her symptoms she presented to the ER where a CT a/p was obtained that revealed findings concerning for SBO. A RUQ US obtained revealed no pathology. Patient was admitted under the medical service with surgical consultation. Since admission she has been feeling better. Currently denies any abdominal pain or nausea. Had + BM and is passing maybe some small amounts of gas. Surgical history as above. No history of SBO in the past. Allergies Allergy/AdvReac Type Severity Reaction Status Date / Time Sulfa (Sulfonamide Allergy Severe Shortness Verified 11/04/23 22:48 Antibiotics) of Breath oxycodone [From Percocet] AdvReac Intermediate Agitation Verified 11/04/23 22:48 ibuprofen AdvReac Unknown Not to Verified 11/04/23 22:48 Take Due to Weight Loss Surgery Home Medications Medication Instructions Recorded Confirmed Type cholecalciferol (vitamin D3) 25 0 mcg PO DAILY 05/27/20 11/04/23 History mcg (1,000 unit) capsule (Vitamin D3) esomeprazole magnesium 20 mg 20 mg PO DAILYBB 11/04/23 11/04/23 History capsule,delayed release ferrous sulfate 325 mg (65 mg 325 mg PO DAILY 11/04/23 11/04/23 History iron) tablet (iron) fluoride (sodium) 1.1 % dental 1 applic PO DIRECTED 11/04/23 11/04/23 History cream (Denta 5000 Plus) multivitamin 1 tab PO DAILY 11/04/23 11/04/23 History vitamin A 3,000 mcg (10,000 unit) 0 mcg PO DAILY 11/04/23 11/04/23 History capsule vitamin K2 90 mcg capsule 0 mcg PO DAILY 11/04/23 11/04/23 History zinc gluconate 50 mg tablet 0 mg PO DAILY 11/04/23 11/04/23 History Patient History Surgical History History of hysterectomy for cancer (~04/2019) Uterine S/P hernia repair H/O gastric bypass Social History Smoking Status: Never smoker Hx Alcohol Use: Yes Hx Substance Use: No Preferred Language: Belarusian Communication Ability: Effective Multi Purpose Machine Operator Required: No Beliefs That Will Affect Care: None marital status: Single Current Living Situation: Parent Feels Safe at Home: Yes Safety Concerns: Feels Safe At This Time Assistive Devices: None Review of Systems Constitutional: no fever and no chills Respiratory: no dyspnea Cardiovascular: no chest pain Gastrointestinal: + abdominal pain (upper abdomen) and + n ausea dry heaves Physical Exam Physical Exam: awake/alert, no distress Respiratory: normal respiratory effort Gastrointestinal (Abdomen): Inspection/Auscultation: abdomen not distended Percussion/Palpation: abdomen soft; abdomen nontender surgical scars noted from prior surgeries. lower midline incision well healed Results & Data Vital Signs (Past 12 Hours) Vital Signs Temp Pulse Pulse Pulse Resp BP Pulse Ox 11/05/23 07:13 11/05/23 06:54 97.5 F L 60 18 143/64 H 98 11/05/23 06:10 52 L 11/05/23 06:00 50 L 16 140/85 98 11/05/23 04:28 98 11/05/23 04:01 60 18 156/81 H 99 11/05/23 02:55 56 L 24 98 11/05/23 02:13 52 L 11/05/23 00:04 63 17 146/70 H 98 11/04/23 22:45 66 18 158/101 H 96 11/04/23 22:20 61 11/04/23 22:18 98 11/04/23 22:17 59 L 19 131/79 97 O2 Del Method 11/05/23 07:13 Room Air 11/05/23 06:54 Room Air 11/05/23 06:10 11/05/23 06:00 Room Air 11/05/23 04:28 Room Air 11/05/23 04:01 Room Air 11/05/23 02:55 Room Air 11/05/23 02:13 11/05/23 00:04 Room Air 11/04/23 22:45 Room Air 11/04/23 22:20 11/04/23 22:18 Room Air 11/04/23 22:17 Room Air Diagnostic Findings Exam(s): CT ABDOMEN + PELVIS With Contrast IV Amt: 90 ml opti 320 EXAM: CT Abdomen and Pelvis With Intravenous Contrast CLINICAL HISTORY: Reason for exam: RUQ and epigastric pain with elev lipase. TECHNIQUE: Axial computed tomography images of the abdomen and pelvis with intravenous contrast. CTDI is 28.14 mGy and DLP is 1408.89 mGy-cm. Automated exposure control was utilized for the study. A dose lowering technique was utilized adhering to the principles of ALARA. CONTRAST: Patient received 90 ml opti 320 of IV contrast COMPARISON: 05/15/2022 FINDINGS: Lung bases: Unremarkable. No mass. No consolidation. ABDOMEN: Liver: Unremarkable. No mass. Gallbladder and bile ducts: Unremarkable. No calcified stones. No ductal dilation. Pancreas: Unremarkable. No mass. No ductal dilation. Spleen: Unremarkable. No splenomegaly. Adrenals: Unremarkable. No mass. Kidneys and ureters: Unremarkable. No solid mass. No hydronephrosis. Stomach and bowel: Small bowel obstruction with a transition point in the right lower quadrant. No mucosal thickening. PELVIS: Appendix: No findings to suggest acute appendicitis. Bladder: Unremarkable. No mass. Reproductive: Unremarkable as visualized. ABDOMEN and PELVIS: Intraperitoneal space: Unremarkable. No free air. No significant fluid collection. Bones/joints: No acute fracture. No dislocation. Soft tissues: Unremarkable. Vasculature: Unremarkable. No abdominal aortic aneurysm. Lymph nodes: Unremarkable. No enlarged lymph nodes. IMPRESSION: Small bowel obstruction Electronically signed by: Oni De La Fuente MD 11/05/23 04:12 AM XR KUB/Abdomen 1 view CLINICAL HISTORY: SBO TECHNIQUE: 1 view of the abdomen was obtained. Comparison: Comparison is made to CT abdomen pelvis 11/05/2023 FINDINGS: Lung bases are unremarkable. Degenerative changes are seen in the visualized skeleton. A few gas dilated loops of small bowel measure up to 45 mm. Small stool burden is seen. IMPRESSION: Findings compatible with continued small bowel obstruction. ACT 112: Negative or not required by law. Electronically signed by: Alex Fried M.D. 11/05/2023 9:44 AM PG Care Time/CCT Total # of Minutes Spent Total Time Spent with Patient: Total time spent is greater than 50% in coordination of care (as documented) at patient's floor/unit and/or counseling patient: Coding Level of Care Code 45503 IN/OBS CONSULT LVL 3,45M Diagnoses SBO (small bowel obstruction) K56.609
--- NOTE | 2023-11-05 10:07 | Electrocardiogram Report ---
Test Reason : Blood Pressure : / mmHG Vent. Rate : 058 BPM Atrial Rate : 058 BPM P-R Int : 136 ms QRS Dur : 076 ms QT Int : 404 ms P-R-T Axes : 016 007 015 degrees QTc Int : 396 ms Sinus bradycardia Poor R wave progression, consider anterior MS vs. lead placement vs. LVH Abnormal ECG No previous ECGs available Confirmed by Dylan Ochoa ([id number]) on 11/05/2023 10:07:19 AM Referred By: REFERRED SELF Confirmed By:Dylan Ochoa
--- NOTE | 2023-11-05 11:54 | Hospitalist Progress Note ---
Date of Service November 05, 2023 Assessment & Plan (1) SBO (small bowel obstruction): Plan: 37-year-old female with past medical history significant for PVCs, obesity, history of Fierro's esophagus with dysplasia, history of Brown, history of anemia due to chronic blood loss, history of endometrial cancer, s/p biliopancreatic diversion with duodenal switch, history of gastric bypass surgery, history of hernia repair, history of sleep apnea no longer on BiPAP p resents with epigastric abdominal pain and found to have a small bowel obstruction. Abdominal Pain SBO small bowel obstruction on CT scan abd/pelvis KUB confirming SBO history of gastric bypass surgery, s/p biliopancreatic diversion with duodenal switch, s/p hernia repair General surgery consulted, appreciate recs -symptoms improving -advance diet as tolerated -if worsening will need transfer due to complex surgical Hx IV fluids, IV antiemetics as needed, IV Dilaudid as needed Currently on clears Continue to monitor history of Fierro'sl esophagus with dysplasia continue Nexium IV Pepcid elevated lipase lipase 186 mostly nonspecific continue to monitor possible UTI UA suggestive of infection with Leukocytosis Urine cx pending IV Rocephin Follow cultures Diet: clears, advance as tolerated DVT prophylaxis: Lovenox dispo: home once medically stable Admission and Anticipated Discharge Date Admission Date: November 05, 2023 Subjective Pt was seen with her parents at bedside. Denied acute concerns at that time. Stated that abdominal pain had resolved, was drinking water and tolerated that well. Had not yet tried a clear meal. Denied N/V Review of Systems Review of Systems: All systems reviewed & are unremarkable except as noted in Subjective Physical Exam Physical Exam: General: Alert, oriented. No acute distress Skin: No noted rashes or bruises Psych: Appropriate mood and affect Neuro: No gross deficits HEENT: NC/AT CV: RRR Resp: Breath sounds clear bilaterally, no increased effort of breathing. Abdomen: Soft, nontender, nondistended Extremities: No edema in lower extremities bilaterally. Results & Data Results & Data Vital Signs (Past 12 Hours) Vital Signs Temp Pulse Pulse Pulse Resp BP Pulse Ox 11/05/23 07:13 11/05/23 06:54 36.4 C L 60 18 143/64 H 98 11/05/23 06:10 52 L 11/05/23 06:00 50 L 16 140/85 98 11/05/23 04:28 98 06/26/24 04:01 60 18 156/81 H 99 11/05/23 02:55 56 L 24 98 11/05/23 02:13 52 L 11/05/23 00:04 63 17 146/70 H 98 O2 Del Method 11/05/23 07:13 Room Air 11/05/23 06:54 Room Air 11/05/23 06:10 11/05/23 06:00 Room Air 11/05/23 04:28 Room Air 11/05/23 04:01 Room Air 11/05/23 02:55 Room Air 11/05/23 02:13 11/05/23 00:04 Room Air
[2023-11-05] MEDS: diphenhydrAMINE Capsule 25 MG CAP PO PRN (21:48)
[2023-11-06 06:43] LABS: Basophils # (auto) 0.04 K/uL (0.00-0.20); Basophils % (auto) 0.5 %; Eosinophils # (auto) 0.21 K/uL (0.00-0.50); Eosinophils % (auto) 2.8 %; Hematocrit (blood only) 36.8 % (37.0-47.0); Hemoglobin 11.6 g/dl (12.0-16.0); Immature Granulocytes # (auto) 0.02 K/uL (0.01-0.20); Immature Granulocytes % (auto) 0.3 %; Lymphocytes # (auto) 2.13 K/uL (1.20-3.40); Lymphocytes % (auto) 28.3 %; Mean Corpuscular Hemoglobin 26.9 pg (25.0-34.0); Mean Corpuscular Hgb Conc 31.5 g/dL (32.0-36.0); Mean Corpuscular Volume 85.2 fL (80.0-100.0); Mean Platelet Volume 10.2 fL (9.4-12.4); Monocytes # (auto) 0.62 K/uL (0.11-0.59); Monocytes % (auto) 8.2 %; Neutrophils # (auto) 4.51 K/uL (1.40-6.50); Neutrophils % (auto) 59.9 %; Platelet Count 278 K/uL (130-400); RDW Coefficient of Variation 15.5 % (11.5-14.5); RDW Standard Deviation 48.4 fL (36.4-46.3); Red Blood Count 4.32 M/uL (4.20-5.40); White Blood Count 7.53 K/ul (4.8-10.8)
[2023-11-06 07:00] LABS: Alanine Aminotransferase 14 U/L (7-52); Albumin Level 3.3 gm/dl (3.4-5.0); Alkaline Phosphatase 72 U/L (34-104); Anion Gap 5 (3-11); Aspartate Aminotransferase 12 U/L (13-39); BUN Creatinine Ratio 11.1 (10-20); Bilirubin,Total 0.4 mg/dl (0.2-1.0); Blood Urea Nitrogen 4 mg/dl (6-23); Carbon Dioxide 24 mmol/L (21-32); Chloride 112 mmol/L (98-107); Creatinine Clr Calc Pharmacy 218.5 ml/min; Est GFR (African American) > 150.0 ml/min; Est GFR (Non-African American) 135.8 ml/min; Globulin 3.2 gm/dl (2.5-4.0); Glucose 95 mg/dl (70-99(Fasting)); Magnesium 1.9 mg/dl (1.7-2.4); Phosphorus 3.6 mg/dl (2.5-4.9); Potassium 4.1 mmol/L (3.5-5.1); Sodium 141 mmol/L (136-145); Total Protein 6.5 gm/dl (6.0-8.3)
--- NOTE | 2023-11-06 08:24 | Surgery Progress Note ---
Date of Service November 06, 2023 Assessment & Plan (1) SBO (small bowel obstruction): Plan: resolving SBO Having bm , passing flatus tolerating clears, advance to fulls If tolerates full can have low fiber and be d/c VSS General surg will sign off at this time call with question/concerns Admission and Anticipated Discharge Date Admission Date: November 05, 2023 Subjective No complaints tolerating clears Review of Systems Constitutional: no fever and no chills Respiratory: no dyspnea Cardiovascular: no chest pain Gastrointestinal: no abdominal pain, no nausea and no vomiting Physical Exam Constitutional: cooperative and comfortable; no acute distress Respiratory: normal respiratory effort and able to speak in complete sentences; no respiratory distress Gastrointestinal (Abdomen): Inspection/Auscultation: abdomen not distended Percussion/Palpation: abdomen soft; abdomen nontender Results & Data Vital Signs (Past 12 Hours) Vital Signs Temp Pulse Resp BP Pulse Ox O2 Del Method 11/06/23 07:46 Room Air 11/06/23 07:32 97.9 F 50 L 18 121/83 95 Room Air 11/05/23 21:53 97.9 F 65 16 126/76 95 Room Air PG Care Time/CCT Total # of Minutes Spent Total Time Spent with Patient: Total time spent is greater than 50% in coordination of care (as documented) at patient's floor/unit and/or counseling patient: Coding Level of Care Code 35960 SUB INP/OBS CARE 06/05MIN Diagnoses SBO (small bowel obstruction) K56.609
--- NOTE | 2023-11-06 12:23 | Discharge Summary ---
Discharge Summary Date of Service November 06, 2023 Principal Dx & Hospital Course #1 = Principal Diagnosis (1) SBO (small bowel obstruction): Plan Pt is a 37-year-old female with past medical history significant for PVCs, obesity, history of Fierro's esophagus with dysplasia, history of BROWN, history of anemia due to chronic blood loss, history of endometrial cancer, s/p biliopancreatic diversion with duodenal switch, history of gastric bypass surgery, history of hernia repair, history of sleep apnea no longer on BiPAP who presented with epigastric abdominal pain and was found to have a small bowel obstruction. Abdominal Pain SBO Pt presented with abdominal pain Small bowel obstruction on CT scan abd/pelvis KUB confirming SBO History of gastric bypass surgery, s/p biliopancreatic diversion with duodenal switch, s/p ventral hernia repair, s/p hysterectomy for endometrial cancer General surgery consulted, appreciate recs -symptoms improving, having BMs and passing flatus -advance diet as tolerated -can discharge home if tolerating low fiber diet -if worsening will need transfer due to complicated surgical Hx IV fluids, IV antiemetics as needed, IV Dilaudid as needed Advanced diet as tolerated to low fiber on discharge PCP followup Acute UTI UA was suggestive of infection Noted leukocytosis Urine Cx with no significant growth Treated with 2 days of IV Rocephin Discharged with po cefdinir for an additional 3 days. History of Fierro's esophagus with dysplasia Continue home ppi Was also placed on IV Pepcid Elevated lipase Lipase 186 Mostly nonspecific Was monitored Notes For Next Care Provider Please ensure continued resolution of symptoms and continued BMs Medication Changes From Visit cefdinir 300mg BID x 3 more days Admission HPI Per Admitting Provider 37-year-old female with past medical history significant for PVCs, obesity, history of Fierro's esophagus with dysplasia, history of Brown, history of anemi a due to chronic blood loss, history of endometrial cancer, s/p biliopancreatic diversion with duodenal switch, history of gastric bypass surgery, history of sleep apnea no longer on BiPAP presents with epigastric abdominal pain and found to have small bowel obstruction. Yesterday evening patient noticed pain in her upper abdomen in epigastric region felt like indigestion and also had a couple of sharp pains in the right upper abdomen for few seconds. Currently her epigastric abdomen pain resolved. Was nauseous. Currently passing gas. Just had a bowel movement. It was diarrhea. No blood in the stools. Micturating okay. No chest pain or shortness of breath. No headache. No dizziness. No blurred visions. No runny nose or sore throat. No cough. No difficulty swallowing. Currently resting comfortably and hemodynamically stable. Past medical history. As mentioned above past surgical history. Colonoscopy. Dilatation curettage. EGD. Laparoscopic gastric restrictive procedure and partial gastrectomy pylorus-preserving. Hysteroscopy with biopsy. S/p IUD. Laparoscopic sleeve of liver. Umbilical hernia repair. Removal of pelvic contents for tumor. Repair of inguinal hernia. Total hysterectomy with unilateral oophorectomy. Social history. No smoking. No alcohol use. No drug use. Family history. Maternal aunt had breast cancer. Paternal grandfather had colon cancer. Prostate cancer. Skin cancer. Paternal grandmother had diabetes. Admission Exam Per Admitting Provider General- Not in distress Head- atraumatic Eyes- PERRL. ENT- oropharynx clear Neck- supple, no JVD. Lungs- clear to auscultation no wheezing or crackles Heart- regular rate and ; no murmur, no gallop. Abdomen- very sluggish bowel sounds, soft, nontender, no distension. Extremities- no pretibial edema, no erythema seen. Neuro- alert, oriented PERRL, no facial palsy; no dysarthria; moves extremities. Discharge Exam General: Alert, oriented. No acute distress Skin: No noted rashes or bruises Psych: Appropriate mood and affect Neuro: No gross deficits HEENT: NC/AT CV: RRR Resp: Breath sounds clear bilaterally, no increased effort of breathing. Abdomen: Soft, nontender, nondistended Extremities: No edema in lower extremities bilaterally. Updated Medication List Medication Instructions Recorded Confirmed Type cholecalciferol (vitamin D3) 25 0 mcg PO DAILY 05/27/20 11/04/23 History mcg (1,000 unit) capsule (Vitamin D3) esomeprazole magnesium 20 mg 20 mg PO DAILYBB 11/04/23 11/04/23 History capsule,delayed release ferrous sulfate 325 mg (65 mg 325 mg PO DAILY 11/04/23 11/04/23 History iron) tablet (iron) fluoride (sodium) 1.1 % dental 1 applic PO DIRECTED 11/04/23 11/04/23 History cream (Denta 5000 Plus) multivitamin 1 tab PO DAILY 11/04/23 11/04/23 History vitamin A 3,000 mcg (10,000 unit) 0 mcg PO DAILY 11/04/23 11/04/23 History capsule vitamin K2 90 mcg capsule 0 mcg PO DAILY 11/04/23 11/04/23 History zinc gluconate 50 mg tablet 0 mg PO DAILY 11/04/23 11/04/23 History cefdinir 300 mg capsule 300 mg PO BID #6 caps 11/06/23 Rx Hospital Stay Data Consultations 11/05/23 04:33 ED Decision to Admit Stat 11/05/23 08:00 Consult General Surgery Routine Diagnostic Imagining Performed 11/04/23 21:52 US RUQ [US liver] Stat 11/05/23 01:05 CT abd pelvis IV con only Stat Chest X-Ray 11/04/23 20:49 XR chest 1V portable CLINICAL HISTORY: Chest pain, nonspecific TECHNIQUE: Single frontal radiograph of the chest was obtained. Comparison: None available at the time of this dictation. FINDINGS: No lines and tubes are seen. The cardiomediastinal silhouette is normal. The lungs are clear. No evidence of pleural effusion or pneumothorax. IMPRESSION: No acute chest disease. ACT 112: Negative or not required by law. Electronically signed by: Alex Fried M.D. 11/05/2023 7:39 AM Liver Ultrasound 11/04/23 21:52 Exam(s): US LIVER EXAM: US Abdomen Limited CLINICAL HISTORY: Reason for exam: RUQ and epigastric abdominal pain - eval GB/liver. TECHNIQUE: Real-time ultrasound of the abdomen with image documentation. COMPARISON: No relevant prior studies available. FINDINGS: Liver is within normal limits No gallbladder wall thickening or pericholecystic fluid Bile duct is within normal limits measuring the 0.6 mm . IMPRESSION: No cholelithiasis or sonographic evidence of acute cholecystitis Electronically signed by: Oni De La Fuente MD 11/05/23 02:49 AM Abdomen/Pelvis CT 11/05/23 01:05 Exam(s): CT ABDOMEN + PELVIS With Contrast IV Amt: 90 ml opti 320 EXAM: CT Abdomen and Pelvis With Intravenous Contrast CLINICAL HISTORY: Reason for exam: RUQ and epigastric pain with elev lipase. TECHNIQUE: Axial computed tomography images of the abdomen and pelvis with intravenous contrast. CTDI is 28.14 mGy and DLP is 1408.89 mGy-cm. Automated exposure control was utilized for the study. A dose lowering technique was utilized adhering to the principles of ALARA. CONTRAST: Patient received 90 ml opti 320 of IV contrast COMPARISON: 05/15/2022 FINDINGS: Lung bases: Unremarkable. No mass. No consolidation. ABDOMEN: Liver: Unremarkable. No mass. Gallbladder and bile ducts: Unremarkable. No calcified stones. No ductal dilation. Pancreas: Unremarkable. No mass. No ductal dilation. Spleen: Unremarkable. No splenomegaly. Adrenals: Unremarkable. No mass. Kidneys and ureters: Unremarkable. No solid mass. No hydronephrosis. Stomach and bowel: Small bowel obstruction with a transition point in the right lower quadrant. No mucosal thickening. PELVIS: Appendix: No findings to suggest acute appendicitis. Bladder: Unremarkable. No mass. Reproductive: Unremarkable as visualized. ABDOMEN and PELVIS: Intraperitoneal space: Unremarkable. No free air. No significant fluid collection. Bones/joints: No acute fracture. No dislocation. Soft tissues: Unremarkable. Vasculature: Unremarkable. No abdominal aortic aneurysm. Lymph nodes: Unremarkable. No enlarged lymph nodes. IMPRESSION: Small bowel obstruction Electronically signed by: Oni De La Fuente MD 11/05/23 04:12 AM KUB X-Ray 11/05/23 07:32 XR KUB/Abdomen 1 view CLINICAL HISTORY: SBO TECHNIQUE: 1 view of the abdomen was obtained. Comparison: Comparison is made to CT abdomen pelvis 11/05/2023 FINDINGS: Lung bases are unremarkable. Degenerative changes are seen in the visualized skeleton. A few gas dilated loops of small bowel measure up to 45 mm. Small stool burden is seen. IMPRESSION: Findings compatible with continued small bowel obstruction. ACT 112: Negative or not required by law. Electronically signed by: Alex Fried M.D. 11/05/2023 9:44 AM Discharge Instructions Given to Patient (Per Discharging Provider) Faiza, You were admitted with a small bowel obstruction and the surgeon advised discharge as long as you were able to tolerate an advanced diet. Please continue advancing your diet at home. We also treated you for a urinary tract infection and we are discharging you home with 3 more days of antibiotics. Please take as prescribed. Please keep close follow up with your primary care provider after discharge. Please do not hesitate to come back to the emergency room if your symptoms worsen or return. It was a pleasure taking care of you while you were here. Total Time Total Time Spent Total Time Spent (In Minutes): 75
== END 2023-11-06 18:15 | disposition home or self-care (01) | DRG 389 ==
LOC: ED 20:34 → 3W 11-05 05:10